=== PATIENT | male | born 1995 | race Caucasian/White ===

== ENCOUNTER 2018-02-23 15:34 | Inpatient (IN) | payer BC, OTHER ==
[~2018-02-23] VITALS: Ht 182.9 cm; Wt 117.9 kg
--- NOTE | 2018-02-23 18:20 | NUR ---
PRE ADMISSION NOTE Patient is alert awake oriented x4. Patient is admitted for ETOH/Benzo(XANAX), Heroin, Meth, Vicodin, withdrawal. VITAL SIGNS- B/P-132/89, RR-18, HR-88, Spo2-96%, Pain -0/10. Temp-98.1. Patient reported PMH of anxiety, depression, asthma,Hep-C, ADHD and history of withdrawal induced seizure. Patient is intoxicated at this time and able to answer questions but patient has poor eye contact and keep scratching himself all over his body. Explained patient with unit protocol. Will admit the patient on third floor.
[2018-02-23] MEDS ORDERED: MIRALAX 17 GM POWD.PACK PO PRN (18:30)
[2018-02-23] MEDS ORDERED: diphenhydrAMINE 50 MG CAPSULE PO PRN (18:30)
[2018-02-23] MEDS ORDERED: MAGNESIUM HYDROXIDE 30 ML LIQUID UDC PO PRN (18:30)
[2018-02-23] MEDS ORDERED: THIAMINE HCL 200 MG/2 ML VIAL IM ONE (18:30)
[2018-02-23] MEDS ORDERED: LORAZEPAM 1 MG TABLET PO PRN (18:30)
[2018-02-23] MEDS ORDERED: LORAZEPAM 2 MG/1 ML VIAL IM PRN (18:30)
[2018-02-23] MEDS ORDERED: MAG HYDROX/AL HYDROX/SIMETH 30 ML LIQUID UDC PO PRN (18:30)
[2018-02-23] MEDS ORDERED: LOPERAMIDE HCL 2 MG CAPSULE PO PRN ×2 (18:30)
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
[2018-02-23 20:00] VITALS: BP 134/93
[2018-02-23 20:06] LABS: ALANINE AMINOTRANSFERASE 85 U/L (16-63); ALKALINE PHOSPHATASE 90 U/L (50-136); AMYLASE 27 U/L (25-115); ASPARTATE AMINOTRANSFERASE 34 U/L (15-37); BILIRUBIN,TOTAL 0.7 mg/dL (0.2-1.0); CARBON DIOXIDE 28 mmol/L (21-32); CHLORIDE 99 mmol/L (98-107); GLUCOSE 101 mg/dL (74-106); MAGNESIUM 2.1 mg/dL (1.8-2.4); POTASSIUM 3.8 mmol/L (3.5-5.1); TOTAL PROTEIN, SERUM 8.5 g/dL (6.4-8.2); UREA NITROGEN, BLOOD 8 mg/dL (7-18)
[2018-02-23 20:17] LABS: THYROID STIMULATING HORMONE 0.551 mIU/mL (0.358-3.740)
[2018-02-23 20:31] LABS: ETHANOL < 3 MG/DL (0-0)
--- NOTE | 2018-02-23 20:31 | NUR ---
CLINICAL PHARMACY:VANCOMYCIN DOSING Request for Vancomycin dosing on 22 y/0 6' 260lbs for left upper extremity cellulitis BUN 8 Scr 1.0 start vancomycin 2gm ivpb q16h estimate trough 15.7. Will order trough level prior to 4th dose. Will continue to monitor
[2018-02-23] MEDS: ONDANSETRON 4 MG/2 ML VIAL IM PRN (20:38)
[2018-02-23] MEDS: GABAPENTIN 300 MG CAPSULE PO SCH (20:39)
[2018-02-23] MEDS: IBUPROFEN 600 MG TABLET PO PRN (20:39)
[2018-02-23] MEDS: METHOCARBAMOL 750 MG TABLET PO PRN (20:39)
[2018-02-23] MEDS: DICYCLOMINE HCL 20 MG TABLET PO PRN (20:39)
--- NOTE | 2018-02-23 20:39 | NUR ---
RASHI REDD, ZOFRAN INJ, ROBAXIN AND MOTRIN ADMINISTRATION Pt complains of nausea, reports having one episode of vomiting prior to arrival. Pt states, "I feel like I'm about to throw up." Pt presents with stomach cramps, body aches and pain in bilateral arms r/t cellulitis and abscesses. Safety measures in place. Call light within reach. Will continue to monitor.
[2018-02-23 20:44] LABS: BASOPHILS % (AUTO) 0.3 % (0.0-2.0); EOSINOPHILS # (AUTO) 0.1 K/uL (0.0-0.7); EOSINOPHILS % (AUTO) 0.5 % (0.0-7.0); HEMATOCRIT 41.6 % (36.7-47.1); HEMOGLOBIN 14.4 g/dL (12.5-16.3); LYMPHOCYTES # (AUTO) 1.3 K/uL (20.0-40.0); LYMPHOCYTES % (AUTO) 8.5 % (20.5-51.5); MEAN CORPUSCULAR HGB CONC 35 g/dL (32.5-36.3); MEAN CORPUSCULAR VOLUME 89.6 fL (73.0-96.2); MONOCYTES % (AUTO) 6.7 % (0.0-11.0); NEUTROPHILS # (AUTO) 12.5 K/uL (1.8-8.9); PLATELET COUNT (AUTO) 283 K/uL (152-348); RED BLOOD CELL COUNT(AUTO) 4.65 MIL/uL (4.06-5.63); WHITE BLOOD COUNT (AUTO) 14.8 K/uL (3.6-10.2)
[2018-02-23] MEDS ORDERED: LORAZEPAM 1 MG TABLET PO SCH (21:00)
[2018-02-23] MEDS: VANCOMYCIN IV 2,000 MG in IV DEXTROSE 5% 500 ML IV SCH (21:26)
--- NOTE | 2018-02-23 21:39 | NUR ---
RASHI REDD, BRENDON, ROBAXIN AND MOTRIN REASSESSMENT Pt reports persistent nausea, no episodes of vomiting. Reports stomach cramps improved. Body aches and pain in arms reduced to 6/10, states "It still christopher feels the same." Safety measures in place. Call light within reach. Will continue to monitor. Addendum: 02/24/18 at 0093 by REED LOVE RN [email or web address] REASSESSMENT AT [id number]
[2018-02-23 21:48] LABS: *AMPHETAMINE, URINE NEGATIVE (NEGATIVE); *BARBITURATE, URINE NEGATIVE (NEGATIVE); *CANNABINOID, URINE POSITIVE (NEGATIVE); *COCCAINE, URINE NEGATIVE (NEGATIVE); *OPIATE, URINE POSITIVE (NEGATIVE); *PHENCYCLIDINE SCREEN,URINE NEGATIVE (NEGATIVE)
[2018-02-23] MEDS: BUPRENORPHINE HCL 2 MG TAB.SUBL SL PRN (21:50)
--- NOTE | 2018-02-23 21:50 | NUR ---
PRN SUBUTEX 4 MG ADMINISTRATION COWS 15. Pt presents with body aches, nausea, increased HR, dilated pupils, anxiety. Pt appears uncomfortable. Safety measures in place. Call light within reach. Will continue to monitor.
--- NOTE | 2018-02-23 22:50 | NUR ---
PRN SUBUTEX REASSESSMENT COWS 9, pt has improvement in sweats, anxiety, restlessness. Safety measures in place. Call light within reach. Will continue to monitor.
[2018-02-24] VITALS: BP 110/53
[2018-02-24] MEDS ORDERED: ALBU2.5V13 IH ×2 (02:36→02:37)
[2018-02-24] MEDS ORDERED: QUET100T PO (02:37)
[2018-02-24 04:00] VITALS: BP 116/63
[2018-02-24] MEDS: BUPRENORPHINE HCL 2 MG TAB.SUBL SL PRN ×2 (04:28→17:52)
[2018-02-24] MEDS: LORAZEPAM 1 MG TABLET PO PRN ×4 (04:28→23:10)
[2018-02-24] MEDS: ONDANSETRON ODT 4 MG TAB.RAPDIS SL PRN ×2 (04:29→21:22)
[2018-02-24] MEDS: IBUPROFEN 600 MG TABLET PO PRN ×3 (04:29→20:13)
--- NOTE | 2018-02-24 04:30 | NUR ---
PRN SUBUTEX 4 MG, ATIVAN 2 MG, ZOFRAN ODT AND MOTRIN ADMINISTRATION COWS 13 and CIWA 14. Pt presents with anxiety, restlessness, difficulty staying asleep, sweats, flushed skin, body aches, nausea without vomiting, agitation, headache 01/12. Safety measures in place. Call light within reach. Will continue to monitor.
--- NOTE | 2018-02-24 05:30 | NUR ---
PRN ATIVAN, SUBUTEX, ZOFRAN AND MOTRIN REASSESSMENT Pt laying in bed with eyes closed, medications noted effective. Respirations even and unlabored. Safety measures in place. Call light within reach. Will continue to monitor.
--- NOTE | 2018-02-24 07:12 | NUR ---
END OF SHIFT Pt is a 22 y/o male admitted on 02/23/18 for benzo, ETOH, opiate, meth and cocaine withdrawal. Pt is on a 4 day Ativan and Subutex taper, tolerating well. Pt presented with anxiety, restlessness, irritability, nausea, body aches, lethargy, flushed skin, flat affect, agitation, difficulty concentrating, poor eye contact, slumped posture, disheveled appearance, stomach cramps. Pt also complained of pain and itchiness in right AC and presents with redness and swelling at abscess site. Pt also had redness, swelling, pain and itchiness on left upper extremity. IV Vanco started on left wrist 22 gauge at 250 ml/hour. Scheduled medications and PRN Bentyl, Zofran inj, Zofran odt, Robaxin, Ativan 2 mg, Subutex 4 mg x 2, Motrin x 2 administered, effective in S/S of withdrawal as verbalized by pt. Pt slept 5 hours. Intake 855 ml, void x 1, stool x 0. Safety measures in place. Call light within reach. Pts needs have been met. Endorsed to day shift nurse.
--- NOTE | 2018-02-24 07:30 | NUR ---
START OF SHIFT : PATIENT IS A 22 YR OLD MALE ADMITTED TO [facility] ON 02/23/18 FOR A MEDICALLY SUPERVISED WITHDRAWAL FROM ALCOHOL, BENZODIAZEPINES, METH, COCAINE AND MARIJUANA. PATIENT IS ASLEEP IN BED AT THIS TIME, BREATHING EVEN AND UNLABORED SIDE RAILS UP X 2. PATIENT HAS BEEN STARTED ON VANCOMYCIN IV Q16H FOR TREATMENT OF BILATERAL ARM ABSCESSES. IV SITE LEFT WRIST. HE IS ON A 4 DAY ATIVAN / SUBUTEX TAPER AND IS TOLERATING WELL. PRN MEDS GIVEN ON PM SHIFT : ATIVAN 2MG PO X2, ZOFRAN 4MG IM, ZOFRAN 4MG SL, ROBAXIN, SUBUTEX 4MG SL X2 AND MOTRIN 600MG PO X2 AND BENTYL. HE SLEPT FOR 7+ HOURS AND LAST COWS 13 CIWA 14 @ 0100. CONTINUE TO FOLLOW MD PLAN OF CARE.
[2018-02-24 08:00] VITALS: BP 112/64
[2018-02-24] MEDS: LORAZEPAM 1 MG TABLET PO SCH ×3 (08:20→20:13)
[2018-02-24] MEDS: THIAMINE HCL 100 MG TABLET PO SCH (08:21)
[2018-02-24] MEDS: GABAPENTIN 300 MG CAPSULE PO SCH ×2 (08:21→20:13)
[2018-02-24] MEDS: BUPRENORPHINE HCL 2 MG TAB.SUBL SL SCH ×3 (08:21→20:13)
[2018-02-24] MEDS: MULTIVITAMINS,THERAPEUTIC TABLET PO SCH (08:21)
[2018-02-24] MEDS: FOLIC ACID 1 MG TABLET PO SCH (08:21)
[2018-02-24] MEDS ORDERED: TUBERCULIN,PURIF.PROT.DERIV. 5 TU/0.1 ML TEST ID ONE (09:00)
--- NOTE | 2018-02-24 12:41 | NUR ---
CLINICAL PHARMACY:VANCOMYCIN DOSING Subjective: Continue Vancomycin dosing on 22 y/0 6' 260lbs for left upper extremity cellulitis Objecteive: BUN 8(02/23) Scr 1.0(02/23) WBC 14.8(02/23) Temp 98.3 Assessment/plan; Continue vancomycin 2gm ivpb q16h, estimate trough 15.7, second dose due today at 1300. Will order trough level prior to 4th dose(not ordered yet). Will continue to monitor
[2018-02-24] MEDS: VANCOMYCIN IV 2,000 MG in IV DEXTROSE 5% 500 ML IV SCH (12:50)
--- NOTE | 2018-02-24 13:14 | NUR ---
PRN ATIVAN/ROBAXIN/MOTRIN ATIVAN 2MG PO ROBAXIN 750MG PO MOTRIN 600MG PO GIVEN FOR S/S OF WITHDRAWAL, AGITATION, CHILLS, SWEATS AND IRRITABILITY
[2018-02-24] MEDS: METHOCARBAMOL 750 MG TABLET PO PRN ×2 (13:15→21:22)
--- NOTE | 2018-02-24 14:14 | NUR ---
PRN REASSESS PATIENT IS ASLEEP IN BED, BREATHING EVEN AND UNLABORED, MEDICATIONS EFFECTIVE
--- NOTE | 2018-02-24 15:31 | NUR ---
Therapist prompted client to attend daily group sessions. Client was had a hard time responding to therapist but stated that he was too tired to attend any groups at this time.
[2018-02-24 16:00] VITALS: BP 108/58
--- NOTE | 2018-02-24 18:00 | NUR ---
ATIVAN/SUBUTEX PRN ATIVAN 2MG PO GIVEN FOR CIWA 14 SUBUTEX 4MG SL GIVEN FOR COWS 12 AND INCREASED WITHDRAWAL SYMPTOMS, SWEATING, AGITATION, BODY ACHES
--- NOTE | 2018-02-24 19:00 | NUR ---
PRN REASSESS ATIVAN EFFECTIVE, CIWA 11 SUBUTEX EFFECTIVE COWS 11 PT STATES HE FEELS LESS ANXIOUS AND AGITATED
--- NOTE | 2018-02-24 19:12 | NUR ---
END OF SHIFT PATIENT IS A 22 YR OLD MALE ADMITTED TO [facility] ON 02/23/18 FOR A MEDICALLY SUPERVISED WITHDRAWAL FROM ALCOHOL, BENZOS, METH ,COCAINE, HEROIN AND MARIJUANA. HE IS ON A 4 DAY ATIVAN/SUBUTEX TAPER TOLERATED WELL. PATIENT HAS ABSCESSES ON BOTH ARMS AND IS BEING TREATED WITH IV VANCOMYCIN Q16H, IV SITE IS ON LEFT WRIST. PRN MEDS GIVEN THIS SHIFT : MOTRIN, ROBAXIN, SUBUTEX 4MG AND ATIVAN 2MG PO, HE HAD A FLUID INTAKE OF 1000ML, 2 VOIDS AND 0 BM, LAST COWS 11 AND CIWA 11 @ 1900. CONTINUE TO FOLLOW MD PLAN OF CARE. ENDORSED TO OPTICIAN APPRENTICE.
--- NOTE | 2018-02-24 19:30 | NUR ---
Start of Shift Note Received a 22 y/o male px, admitted for medically supervised withdrawals from Benzo, ETOH, opiates. Px is placed on 5 day Ativan taper started 02/23/2018 and 4 day Subutex taper started today 02/24/2018. Px is tolerating them. Px is on 1 to 1 due to unsteady gait. Px may go to patio using W/C. Last reported COWS 11 and CIWA 11 by AM shift nurse. During the rounds at 1930, px is awake with eyes closed on bed in left side lying position. Px appears disheveled, anxious, with flat affect and poor eye contact. Unfinished snacks and drinks all over the room and bed. Px stated "my anxiety is 8/10 and I have body aches 9/10. Why do I have somebody here watching over me?" Explained that 1 to 1 is for his safety during ambulation and he may use W/C if he wants to go to patio. Bed on lowest position, side rails up 2x and call light within reach.
[2018-02-24 20:00] VITALS: BP 123/75
[2018-02-24] MEDS: ACETAMINOPHEN 325 MG TABLET PO PRN (20:13)
--- NOTE | 2018-02-24 20:13 | NUR ---
PRN medications At 2012, Px received Motrin 600 mg/tab, 1 tab PO and Tylenol 325 mg/tab, 2 tabs PO as PRN med for body pains of 9/10. At 2121, Px received Zofran 4 mg/tab, 1 tab SL PRN med for 1x emesis and nausea and Robaxin 750 mg/tab, 1 tab PO as PRN med for body aches of 8/10. At 2309, px received Ativan 1 mg/tab, 2 tabs PO as PRN for CIWA of 13 and Seroquel 100 mg PO as PRN med for insomnia. We'll continue to monitor.
--- NOTE | 2018-02-24 21:15 | NUR ---
Reassessment of Body Aches Px stated that his body aches is still high at 8/10 and is asking for Robaxin. We'll continue to monitor.
--- NOTE | 2018-02-24 21:52 | NUR ---
Reassessment of N/V Px stated that his nausea improved and no more episode of vomiting. We'll continue to monitor.
--- NOTE | 2018-02-24 22:30 | NUR ---
Reassessment of body aches Px stated "I am still in pain. It's 03/14." We'll continue to monitor.
[2018-02-24] MEDS: QUETIAPINE FUMARATE 100 MG TABLET PO PRN (23:10)
[2018-02-25] VITALS: BP 119/70
[2018-02-25 04:00] VITALS: BP 115/69
--- NOTE | 2018-02-25 04:00 | NUR ---
COWS and CIWA deferred COWS and CIWA deferred at 0000 and 0400 due to the px is asleep, to assess if the px is awake per doctor's order. We'll continue to monitor.
--- NOTE | 2018-02-25 05:15 | NUR ---
IV Vancomycin Vancomycin 2 G in D5 500 ml hooked as a 3rd dose for left and right arm cellulitis. Flushed with 10 cc NS. IV Inserted on a left wrist peripheral IV line running at 250 ml per hour. We'll continue to monitor.
[2018-02-25] MEDS: VANCOMYCIN IV 2,000 MG in IV DEXTROSE 5% 500 ML IV SCH ×2 (05:20→21:29)
--- NOTE | 2018-02-25 07:15 | NUR ---
End of Shift Note During the shift at 2012, px received Motrin 600 mg PO and Tylenol 650 mg PO for pain of 9/10. At 2121, px received Zofran 4 mg SL for N/V, It was effective. At 2121, Robaxin 750 mg given for pain of 8/10. Px slept before reassessment of the pain. At 2309, px received Ativan 2 mg PO for CIWA 13 and Seroquel 100 mg PO for insomnia. Seroquel was effective. Px slept for 8 hours. Px 's oral intake is 800 ml, voided 2x, without BM. At 0630, px is asleep on bed in fowlers position. Last COWS 12 and CIWA 13. Bed on lowest position, side rails up 2x and call light within reach. Px endorsed to AM shift nurse.
--- NOTE | 2018-02-25 07:35 | NUR ---
START OF SHIFT Rcvd endorse from ongoing nurse, client is in bed, client is a/o x name, place, and situation, he presents with depressed mood, flat affect, moist skin, fine tremors, and difficulty concentrating, peripheral IV on L wrist 22G, Vancomycin running at prescribed rate. Client is on antibiotic therapy Vancomycin for bilateral arm cellulitis with multiple lesions from IV drug use. Client appears disheveled, strong body odor, dirt under fingernails. Client reports inability to sleep, restlessness, generalized body aches, anxiety, cold/chills, abdominal cramps, and decrease appetite. Client is on 1:1 sitter for unsteady gait. Encourage client to drink PO fluids as tolerated to facilitate detox. Encourage client to attend group therapy to learn skills to maintain sober. Last CI 11 @ 2300. PRN medication administered overnight and noted per protocol. Client slept 8 hrs. Seizure precautions in place. Call light within reach.
[2018-02-25 08:00] VITALS: BP 110/65
[2018-02-25 08:06] LABS: HEPATITIS B SURFACE AG Negative (Negative)
[2018-02-25] MEDS: FOLIC ACID 1 MG TABLET PO SCH (09:00)
[2018-02-25] MEDS: LORAZEPAM 1 MG TABLET PO SCH ×2 (09:00→14:10)
[2018-02-25] MEDS: MULTIVITAMINS,THERAPEUTIC TABLET PO SCH (09:00)
[2018-02-25] MEDS: THIAMINE HCL 100 MG TABLET PO SCH (09:00)
[2018-02-25] MEDS ORDERED: BUPRENORPHINE HCL 2 MG TAB.SUBL SL SCH (09:00)
[2018-02-25] MEDS: GABAPENTIN 300 MG CAPSULE PO SCH ×3 (09:00→21:29)
--- NOTE | 2018-02-25 10:14 | NUR ---
MD NOTIFICATION BLOOD CULTURE GRAM POSITIVE COCCI IN CLUSTERS SEEN ON GRAM STAIN IDENTIFICATION AND SENSITIVITIES TO FOLLOW
[2018-02-25 12:37] VITALS: BP 139/84
[2018-02-25] MEDS: BUPRENORPHINE HCL 2 MG TAB.SUBL SL SCH ×2 (14:10→21:29)
--- NOTE | 2018-02-25 14:16 | NUR ---
CLINICAL PHARMACY:VANCOMYCIN DOSING Subjective: Continue Vancomycin dosing on 22 y/0 6' 260lbs for left upper extremity cellulitis Objecteive: BUN 8(02/23) Scr 1.0(02/23) WBC 14.8(02/23) Temp 98.6 Assessment/plan; Continue vancomycin 2gm ivpb q16h, estimate trough 15.7, third dose today at 0500. Will order trough level prior to 4th dose(due tonight at 2030). RN endorsed to hold dose if trough >20. Will check level in am and adjust as needed. Will continue to monitor
[2018-02-25] MEDS: METHOCARBAMOL 750 MG TABLET PO PRN (16:21)
[2018-02-25] MEDS: IBUPROFEN 600 MG TABLET PO PRN (16:21)
--- NOTE | 2018-02-25 16:21 | NUR ---
Motrin/Robaxin/Clonidine 0.1mg PO given: Patient verbalizes "My back, knees and leg hurt. He describes the pain as "9/10." He is noted to be laying down. Rubbing his back and arms. Noted with facial grimacing, sweating and anxiety. Blood pressure 139/84. Medicated patient with Motrin, Robaxin and Clonidine as ordered. Will monitor for effectiveness.
[2018-02-25] MEDS: CLONIDINE HCL 0.1 MG TABLET PO PRN (16:27)
[2018-02-25 16:56] VITALS: BP 139/84
--- NOTE | 2018-02-25 17:21 | NUR ---
Reassess Motrin 600mg, Robaxin 750mg, Clonidine 0.1mg, client vernalizes some relief from pain /, client declines Tylenol at this time. Client continues to be anxious/agitated. Call light within reach. Client agrees to take Vistaril 25mg PO for anxiety and Bentyl 20mg for abdominal spasms.
[2018-02-25] MEDS: HYDROXYZINE PAMOATE 25 MG CAPSULE PO PRN (17:26)
[2018-02-25] MEDS: DICYCLOMINE HCL 20 MG TABLET PO PRN (17:26)
--- NOTE | 2018-02-25 17:26 | NUR ---
PRN Vistaril 25mg PO for anxiety and Bentyl 20mg for abdominal spasms, Will continue to monitor. Client stated, "Why can't you just give me Suboxone and then let me go to smoke, instead of treating me like a fucking monkey and experimenting on me with all these medications." Educate client on Vistaril and Bentyl, highlighting the benefits, client requires additional education. Call light within reach. CN made aware.
--- NOTE | 2018-02-25 18:26 | NUR ---
Reassess PRN Vistaril 25mg, Bentyl 20mg, client is in bed, sounds asleep, RR 16, even, non-labored, 1:1 sitter at bedside. Call light within reach.
--- NOTE | 2018-02-25 19:03 | NUR ---
END OF SHIFT Endorse client to incoming nurse, client is in room, a/o x name, place, and situation, he continues to present depressed mood, flat affect, moist skin, fine tremors, difficulty concentrating, anxiety, cold/chills, abdominal cramps, and decrease appetite. Hep lock on L wrist 22G patent, dressing intact. Vancomycin trough schedule for 2030, before fourth dose of vancomycin, hold if trough >20, will be adjusted in am as needed. Client continues on a 1:1 sitter for unsteady gait. Adequate PO fluid intake 1329mL, void x 2. Client consumes 50-75% of meals. Client is not compliant with group therapy. Last CIWA 14/COWS 13 @ 1600. PRN medication administered and noted per protocol. Uiversal precautions in place. Call light within reach.
[2018-02-25 20:00] VITALS: BP 136/86
--- NOTE | 2018-02-25 20:00 | NUR ---
Start of Shift Patient awake on bed, watching TV, AAOx4 and noted to be anxious, with facial grimacing noted. Patient verbalized intermittent generalized muscle weakness=3/10. Refused pain meds at this time. With IV access on the left wrist #22, patent and intact. Saline flush done, no resistance noted. Patient appears disheveled, with strong body odor, dark under-eye circles, dry lips and has a flushed face. Patient avoids eye contact and noted to be staring on the ceiling when spoken to. Educated patient regarding importance of hygiene. With scattered clothes and pieces of food wrapper on the floor. Pt continues to be on 1:1 for unsteady gait. Discussed with patient plan of care, medications and treatment regimen. Fall, universal, seizure and safety prec in place. Call light within reach. Latest COWS=12, CIWA=13. Will continue to monitor.
[2018-02-25] MEDS ORDERED: LORAZEPAM 1 MG TABLET PO SCH (21:00)
[2018-02-25] MEDS: CLONIDINE HCL 0.1 MG TABLET PO SCH (21:29)
[2018-02-25] MEDS: BACLOFEN 10 MG TABLET PO SCH (21:29)
[2018-02-26] VITALS: BP 127/82
[2018-02-26 04:00] VITALS: BP 133/84
--- NOTE | 2018-02-26 07:10 | NUR ---
End of Shift Patient asleep on bed but arousable, AAOx4 and continues to be anxious, and noted to be avoiding conversation. With IV access on the left wrist #22, patent and intact. Saline flush done, no resistance noted. Patient continually appears disheveled, with strong body odor, dark under-eye circles, dry lips and has a flushed face. With scattered clothes and pieces of food wrapper on the floor still despite the nurse and the NARCOTICS AGENT having cleaned the room earlier on the shift. Pt continues to be on 1:1 for unsteady gait. Fall, universal, seizure and safety prec in place. Call light within reach. Latest COWS=10, CIWA=11, slept for 9 hours. Endorsed to AM shift nurse for continuity of care.
--- NOTE | 2018-02-26 07:30 | NUR ---
START OF SHIFT Rcvd endorse from ongoing nurse, client is sitting in bed, a/o x name, place, and situation, he presents with anxious mood, restless, flat affect, clammy skin goosebump on upper extremities, tremors, and difficulty concentrating, Hep lock on L wrist 22G, patent, dressing intact, on antibiotic therapy Vancomycin for bilateral arm cellulitis. Client appears disheveled, strong body odor, chapped lips, and flushed face. Scattered bottle of water, apple juice, and open bags of candies noted on bedside table and floor, primary nurse cleaned area and encourage client to maintain his environment clean as to avoid a fall. ,Client reports in a pressured voice generalized body aches 4/10, anxiety , sweats, abdominal cramps, and loss of appetite due to nausea. Client is on 1:1 sitter for unsteady gait. Encourage client to drink PO fluids as tolerated to facilitate detox. Encourage client to attend group therapy to learn skills to maintain sober. Last CIWA 10 @ 0400. Client had an uneventful night, slept 9 hrs. Seizure precautions in place. Call light within reach.
[2018-02-26 08:55] VITALS: BP 143/93
[2018-02-26] MEDS: MULTIVITAMINS,THERAPEUTIC TABLET PO SCH (09:08)
[2018-02-26] MEDS: BACLOFEN 10 MG TABLET PO SCH ×2 (09:08→20:19)
[2018-02-26] MEDS: CLONIDINE HCL 0.1 MG TABLET PO SCH ×2 (09:08→20:19)
[2018-02-26] MEDS: GABAPENTIN 300 MG CAPSULE PO SCH ×3 (09:08→20:18)
[2018-02-26] MEDS: LORAZEPAM 1 MG TABLET PO SCH ×2 (09:08→20:19)
[2018-02-26] MEDS: BUPRENORPHINE HCL 2 MG TAB.SUBL SL SCH ×3 (09:08→20:19)
[2018-02-26] MEDS: FOLIC ACID 1 MG TABLET PO SCH (09:09)
[2018-02-26] MEDS: THIAMINE HCL 100 MG TABLET PO SCH (09:09)
[2018-02-26 09:14] LABS: BASOPHILS % (AUTO) 0.4 % (0.0-2.0); EOSINOPHILS # (AUTO) 0.2 K/uL (0.0-0.7); MEAN CORPUSCULAR HGB CONC 35 g/dL (32.5-36.3); MEAN CORPUSCULAR VOLUME 88.8 fL (73.0-96.2); MONOCYTES # (AUTO) 0.7 K/uL (2.0-10.0)
[2018-02-26 09:20] LABS: EOSINOPHILS % (AUTO) 2.2 % (0.0-7.0); HEMATOCRIT 44.3 % (36.7-47.1); HEMOGLOBIN 15.4 g/dL (12.5-16.3); LYMPHOCYTES % (AUTO) 22.7 % (20.5-51.5); MONOCYTES % (AUTO) 7.4 % (0.0-11.0); NEUTROPHILS % (AUTO) 67.3 % (38.5-71.5); PLATELET COUNT (AUTO) 282 K/uL (152-348); RED BLOOD CELL COUNT(AUTO) 4.98 MIL/uL (4.06-5.63)
[2018-02-26 09:23] LABS: BILIRUBIN,DIRECT 0.1 mg/dL (0.0-0.2); BILIRUBIN,TOTAL 0.4 mg/dL (0.2-1.0); CREATININE 0.9 mg/dL (0.6-1.3); MAGNESIUM 2.1 mg/dL (1.8-2.4); POTASSIUM 4.1 mmol/L (3.5-5.1); TOTAL PROTEIN, SERUM 7.9 g/dL (6.4-8.2)
--- NOTE | 2018-02-26 09:30 | NUR ---
Client is on contact isolation d/t positive for MRSA on the blood. Cart is outside room and sign posted at door. Educated client on MRSA infection, reinforcement needed.
[2018-02-26 09:35] LABS: WHITE BLOOD COUNT (AUTO) 8.9 K/uL (3.6-10.2)
[2018-02-26] MEDS ORDERED: NICOTINE POLACRILEX 4 MG GUM-PK OF TEN BC PRN (10:00)
[2018-02-26] MEDS ORDERED: NICOTINE 14 MG/24HR PATCH TD PRN (10:00)
[2018-02-26] MEDS: HYDROXYZINE PAMOATE 25 MG CAPSULE PO PRN ×2 (11:25→22:34)
[2018-02-26] MEDS: CLONIDINE HCL 0.1 MG TABLET PO PRN (11:25)
[2018-02-26] MEDS: KETOROLAC TROMETHAMINE 30 MG INJ IM PRN ×2 (11:25→20:18)
--- NOTE | 2018-02-26 11:25 | NUR ---
PRN Toradol 30mg I, Vistaril 25mg PO, Clonidine 0.1mg PO administered for generalized body aches 10/10, anxiety, agitation, and cold/chills. Call light within reach.
[2018-02-26] MEDS: IV D5 1/2 NS 1000 ML 1,000 ML IV PRN (11:43)
--- NOTE | 2018-02-26 11:55 | NUR ---
Reassess PRN Toradol 30mg IM, client reports slight relief from generalized body aches 5/10. Client declines Tylenol for pain at this time, stating, "i rather, you just give me some Suboxone." Additional education required on Subutex taper.
[2018-02-26 12:18] VITALS: BP 148/91
--- NOTE | 2018-02-26 12:50 | NUR ---
Client stated, "If I don't go to smoke, I am not going to be compliant with this antibiotic ." Educated client on contact isolation and the risk of MRSA (blood). Reinforcement needed.
[2018-02-26] MEDS ORDERED: LORAZEPAM 1 MG TABLET PO ONE (13:15)
--- NOTE | 2018-02-26 13:26 | NUR ---
One time Ativan 2mg for anxiety, agitation. Call light within reach.
[2018-02-26] MEDS: VANCOMYCIN IV 2,000 MG in IV NORMAL SALINE 500 ML IV SCH ×2 (14:20→22:25)
[2018-02-26] MEDS: DICYCLOMINE HCL 20 MG TABLET PO SCH ×2 (14:21→20:19)
--- NOTE | 2018-02-26 14:26 | NUR ---
Reassess One time Ativan 2mg, client is in bed, sound asleep, RR 16, even, non-labored. Call light within reach.
--- NOTE | 2018-02-26 15:10 | NUR ---
CLINICAL PHARMACY:VANCOMYCIN DOSING Subjective: Continue Vancomycin dosing on 22 y/0 6' 260lbs for left upper extremity cellulitis Objecteive: BUN 7 Scr 0.9 WBC 8.9 Temp 98.6 Trough: 3.8 02/25 at 2030 Repeat Trough: 4.5 today 02/26 at 1230 Assessment/plan; Based on trough and repeat to confirm low level, will change regimen to 2gm q8hr for estimated trough of 16.1, first dose today at 1400. Trough ordered before 4th scheduled dose, due tomorrow at 1330. Will check trough and adjust as needed. Will follow
[2018-02-26 16:55] VITALS: BP 129/86
--- NOTE | 2018-02-26 17:14 | NUR ---
Therapist prompted client to attend the next group meeting. Client stated that he would attend.
--- NOTE | 2018-02-26 19:28 | NUR ---
END OF SHIFT Endorse client to incoming nurse, client in in room, a/o x 4, he continues to present with depressed mood, flat affect, clammy skin, dilated pupils, runny nose, restlessness, anxiety, agitation, and difficulty concentrating. Adequate PO fluid intake 2501mL, void x 3. Client continues on 1:1 for unsteady gait. Peripheral line on R F/A 22G running D5%,1/2NS 125mL/hr for hydration. Client consumes 50% of meals. Client is non-compliant of group therapy. Last CIWA 10 @ 1600. PRN administered amd mnoted per protocol. Seizure precautions in place. Contact isolation d/t + MRSA (blood). Call light within reach.
--- NOTE | 2018-02-26 19:45 | NUR ---
Start of Shift Note Received a 22 y/o male px, admitted for medically supervised withdrawals from Benzo, ETOH, opiates. Px is placed on 5 day Ativan and 4 day Subutex taper, last dose will be tomorrow, 02/27/2018. Px is tolerating them. Px is on 1 to 1 due to unsteady gait. Px is on IVF D5 half saline 1 L running at 125 ml/ hr inserted on a peripheral IV line on right forearm. Last reported COWS 11 and CIWA 10 by AM shift nurse. Px is isolation, on patio and room restriction. During the rounds at 1945, px is awake with eyes closed on bed in fowlers position. Px appears disheveled, anxious, with flat affect and poor eye contact. Unfinished snacks and drinks noted on bed side table and top of cabinet. Soiled clothes and beddings noted on the floor. Px stated "my anxiety is 8/10 and I have body aches 8/10. Can I go outside just to walk around the corridor? I feel shit right here! I feel Im in a longterm, and why do I still have somebody inside my room?" Isolation order and 1 to 1 order were explained to the px calmly. Bed on lowest position, side rails up 2x and call light within reach. We'll continue to monitor.
[2018-02-26 20:00] VITALS: BP 129/81
--- NOTE | 2018-02-26 20:18 | NUR ---
PRN medications At 2017, Px received Toradol 30 mg IM on left deltoids for generalized body aches of 8/10. At 2233, px received Vistaril 25 mg/cap, 1 cap PO for anxiety and Seroquel 100 mg/tab,1 tab PO for insomnia as PRN medications. We'll continue to monitor.
--- NOTE | 2018-02-26 20:50 | NUR ---
Reassessment of pain Px stated "My pain is still there. 04/13." We'll continue to monitor.
[2018-02-26] MEDS: MUPIROCIN 2% OINT 22 GM TUBE NS SCH (21:00)
[2018-02-26] MEDS: QUETIAPINE FUMARATE 100 MG TABLET PO PRN (22:34)
--- NOTE | 2018-02-26 23:35 | NUR ---
Reassessment of anxiety Reassessment is deferred due to the px is asleep. We'll continue to monitor.
[2018-02-27] VITALS: BP 114/77
[2018-02-27] MEDS: CLONIDINE HCL 0.1 MG TABLET PO PRN ×2 (01:59→17:46)
[2018-02-27] MEDS: METHOCARBAMOL 750 MG TABLET PO PRN ×3 (01:59→20:45)
--- NOTE | 2018-02-27 01:59 | NUR ---
PRN meds Px received Robaxin 750 mg/tab, 1 tab PO as PRN for generalized body pains of 7/10. Clonidine 0.1 mg/tab,1 tab PO was given for anxiety. We'll continue to monitor.
[2018-02-27] MEDS: IV D5 1/2 NS 1000 ML 1,000 ML IV PRN (03:00)
--- NOTE | 2018-02-27 03:00 | NUR ---
Reassessment of pain Reassessment of pain was deferred due to the px is asleep.
--- NOTE | 2018-02-27 03:00 | NUR ---
IVF D5 half saline IVF D5 half NS 1 L hooked as follow up as primary IV running at 125 ml/ hour inserted in a peripheral IV line on right forearm.
[2018-02-27 04:00] VITALS: BP 120/64
[2018-02-27] MEDS: VANCOMYCIN IV 2,000 MG in IV NORMAL SALINE 500 ML IV SCH ×3 (06:04→21:58)
--- NOTE | 2018-02-27 07:10 | NUR ---
End of Shift Note During the shift at 2018, px received Toradol 30 mg IM injection on left deltoids for generalized body aches of 8/10. It was a bit effective. At 2234, px received Seroquel 100 mg PO for insomnia and Vistaril 25 mg PO for anxiety as PRN medications. At 0159, px received Robaxin 750 mg PO for pain 7/10 and Clonidine 0.1 mg PO for anxiety. At 0300, D5 half saline 1 L hooked at follow up as primary IVF running at 125 ml/hour inserted on a peripheral IV line on right forearm. At 0600, Vancomycin 2 G in NS 500 ml hooked at piggyback antibiotic running at 250 ml/hour. Pxs oral intake is 1 L, voided 2x, with No BM. Px slept for 5.5 hours. Last COWS 10, CIWA 11. Bed on lowest position, side rails up 2x and call light within reach. Bed in lowest position, side rails up 2x, and call light within reach. We'll continue to monitor. Px endorsed to AM shift
--- NOTE | 2018-02-27 07:47 | NUR ---
Start of shift Patient 22 y/o male admitted for medically supervised withdrawal of benzos, ETOH, heroin, meth, opiates, and cocaine. Patient asleep, arousable to voice and light touch. Pt on 1:1 for safety. Pt in isolation for MRSA in blood. Pt has Hepatitis C. Pt on 5 day Ativan taper and Subutex taper (day 5) tolerating well. Pt has IV D5 NS at 125 cc/hour at right forearm. Pt has cellulitis LUE. Pt also received Vancomycin 2 grams Q8 hours. See MD orders. Last COWS 10, CIWA 11. Pt slept 5 hours last night. Patient is compliant with medication regimen. NKA, FULL CODE. Fall and seizure precautions observed. Bed in lowest/locked position, side rails up X2, call light within reach. Will continue to monitor for withdrawal symptoms.
[2018-02-27 08:33] VITALS: BP 95/51
[2018-02-27] MEDS: BACLOFEN 10 MG TABLET PO SCH ×3 (08:36→20:45)
[2018-02-27] MEDS: DICYCLOMINE HCL 20 MG TABLET PO SCH ×3 (08:36→20:45)
[2018-02-27] MEDS: GABAPENTIN 300 MG CAPSULE PO SCH ×2 (08:36→15:18)
[2018-02-27] MEDS: FOLIC ACID 1 MG TABLET PO SCH (08:36)
[2018-02-27] MEDS: THIAMINE HCL 100 MG TABLET PO SCH (08:36)
[2018-02-27] MEDS: MULTIVITAMINS,THERAPEUTIC TABLET PO SCH (08:36)
[2018-02-27] MEDS: CLONIDINE HCL 0.1 MG TABLET PO SCH ×2 (08:37→20:46)
[2018-02-27] MEDS: MUPIROCIN 2% OINT 22 GM TUBE NS SCH ×2 (08:54→21:00)
[2018-02-27] MEDS ORDERED: BUPRENORPHINE HCL 2 MG TAB.SUBL SL SCH (09:00)
[2018-02-27] MEDS ORDERED: LORAZEPAM 1 MG TABLET PO SCH ×2 (09:00→21:00)
[2018-02-27] MEDS: KETOROLAC TROMETHAMINE 30 MG INJ IM PRN (11:28)
[2018-02-27] MEDS: ONDANSETRON ODT 4 MG TAB.RAPDIS SL PRN ×2 (11:29→20:46)
--- NOTE | 2018-02-27 11:36 | NUR ---
PRN MEDICATIONS TORODOL 30 MG IM RIGHT DELTOID FOR BODY PAIN #8/10 ZOFRAN 4 MG SL FOR NAUSEA ROBAXIN 750 MG PO FOR GENERALIZED BODY ACHES
[2018-02-27 12:00] VITALS: BP 131/71
[2018-02-27] MEDS: LORAZEPAM 1 MG TABLET PO SCH ×2 (12:00→16:50)
--- NOTE | 2018-02-27 12:35 | NUR ---
REASSESS MEDICATIONS TORADOL- PT REPORTS BODY PAIN/BACK PAIN BETTER, NOW #4-5/10 ZOFRAN- PT REPORTS NAUSEA IMPROVED AND HE IS ABLE TO EAT. NO EMESIS ROBAXIN- PT REPROTS BODAY ACHES IMPROVED. ALL MEDICATIONS EFFECTIVE.
--- NOTE | 2018-02-27 14:03 | NUR ---
CLINICAL PHARMACY:VANCOMYCIN DOSING Subjective: Continue Vancomycin dosing on 22 y/0 6' 260lbs for left upper extremity cellulitis + positive BCx for MRSA sensitive to vanco Objecteive: BUN 7 (02/26) Scr 0.9 (02/26) WBC 8.9 (02/26) Temp 98.1 Trough: 16.7 today at 1330 Assessment/plan; Based on trough and repeat to confirm low level, continue same regimen of vanco 2gm q8hr for now. Will consider rechecking level if renal function were to change or if pt on prolonged course. Will follow
--- NOTE | 2018-02-27 14:09 | NUR ---
Vancomycin trough 16.7, ok to administer vancomycin 2000 mg
[2018-02-27] MEDS: BUPRENORPHINE HCL 2 MG TAB.SUBL SL SCH ×2 (15:19→20:45)
[2018-02-27 16:00] VITALS: BP 129/67
[2018-02-27] MEDS: HYDROXYZINE PAMOATE 25 MG CAPSULE PO PRN (17:45)
--- NOTE | 2018-02-27 17:51 | NUR ---
PRN CATAPRES 0.1 MG PO FOR ANXIETY. VISTARIL 25 MG PO FOR ANXIETY PT C/O SEVERE ANXIETY, WANTS TO GO OUTSIDE TO SMOKE AND IN ROOM ON ISOLATION. PT UPSET HE HAS BEEN IN ROOM THE LAST FEW DAYS.
--- NOTE | 2018-02-27 18:31 | NUR ---
End of shift Patient 22 y/o male admitted for medically supervised withdrawal of benzos, ETOH, heroin, meth, opiates, and cocaine. Pt was on 5 day Ativan taper and Subutex taper (day 5). extended Ativan and Subutex taper one more day. Anticipated end of taper Thursday and discharge Thursday. Patient A&O X4. Presents with anxiety, irritable, labile, depressed mood and flat affect. W/D symptoms include sweats, nausea, body aches and back pain. PRN given today Torodol, Zofran, Vistaril, Clonidine, and Robaxin. Pt on 1:1 for safety. Pt in isolation for MRSA in blood. Pt has Hepatitis C. Pt has heplock at right forearm, patent. Used for IV antibiotic Vancomycin. Pt has cellulitis LUE. Last COWS 10, CIWA 11. Patient is compliant with medication regimen. NKA, FULL CODE. Adequate PO fluids 2100 ml, IV fluids 1000 ml, voids x 2, no BM. Fall and seizure precautions observed. Bed in lowest/locked position, side rails up X2, call light within reach. Will continue to monitor for withdrawal symptoms. Endorsed to PM shift.
--- NOTE | 2018-02-27 18:50 | NUR ---
REASSESS- CLONIDINE AND VISTARIL- PT REPORTS ANXIETY IMPROVED. HE STILL FEELS CLAUSTROPHOBIC AND WANTS TO GO OUTSIDE.
--- NOTE | 2018-02-27 19:30 | NUR ---
START OF SHIFT Pt is a 22 y/o male admitted on 02/23/18 for benzo, ETOH, opiate, meth and cocaine withdrawal. Pt on a Ativan and Subutex taper that got extended today. Last COWS 10 and CIWA 11 and PRN Toradol, Robaxin, Zofran odt, Clonidine and Vistaril administered during day shift. Upon assessment pt presents with anxiety, restlessness, agitation, lethargy, fatigue, paranoia, worry, depression, flat affect, unkempt room, unshaven, difficulty falling and staying asleep, dysphoria, anhedonia. Pt on IV Vancomycin. IV site in right forearm, IV site patent and intact. No redness, swelling or pain at IV site. Pt has cellulitis in lUE and MRSA. Medications due. Safety measures in place. Call light within reach. Will continue to monitor. Addendum: 02/27/18 at 2311 by REED LOVE RN 1:1 sitter for safety.
[2018-02-27 20:00] VITALS: BP 130/87
[2018-02-27] MEDS: QUETIAPINE FUMARATE 100 MG TABLET PO PRN (20:46)
--- NOTE | 2018-02-27 20:46 | NUR ---
PRN SEROQUEL 100 MG, ZOFRAN ODT AND ROBAXIN ADMINISTRATION Pt requests Seroquel for sleep. Pt complains of nausea without any episodes of vomiting and body aches 05/14. Safety measures in place. Call light within reach. Will continue to monitor. Addendum: 02/27/18 at 2311 by REED LOVE RN 1:1 sitter at bedside.
[2018-02-27] MEDS ORDERED: GABAPENTIN 300 MG CAPSULE PO SCH (21:00)
--- NOTE | 2018-02-27 21:16 | NUR ---
RASHI FAJARDO REASSESSMENT Pt reports nausea improved, no episodes of vomiting. Safety measures in place. Call light within reach. Will continue to monitor. Addendum: 02/27/18 at 2311 by REED LOVE RN 1:1 sitter at bedside.
--- NOTE | 2018-02-27 21:46 | NUR ---
PRN SEROQUEL AND ROBAXIN REASSESSMENT Pt remains awake, appears more fatigued. Pt reports "I still feel like shit," states Robaxin was ineffective. Safety measures in place. 1:1 sitter with patient. Will continue to monitor.
--- NOTE | 2018-02-28 | NUR ---
COWS/CIWA DEFERRED AND VITALS REFUSED Pt laying in bed with eyes closed, COWS/CIWA deferred, to be assessed when pt is awake per orders. Vitals refused. Respirations even and unlabored. Safety measures in place. Call light within reach. Will continue to monitor.
[2018-02-28 04:00] VITALS: BP 137/91
[2018-02-28] MEDS: HYDROXYZINE PAMOATE 25 MG CAPSULE PO PRN (04:22)
[2018-02-28] MEDS: CLONIDINE HCL 0.1 MG TABLET PO PRN (04:22)
--- NOTE | 2018-02-28 04:22 | NUR ---
PRN VISTARIL AND CLONIDINE ADMINISTRATION Pt presents with anxiety, agitation, intermittent sweat and chills. Safety measures in place. 1:1 sitter at bedside. Will continue to monitor.
[2018-02-28] MEDS: KETOROLAC TROMETHAMINE 30 MG INJ IM PRN (05:05)
[2018-02-28] MEDS: METHOCARBAMOL 750 MG TABLET PO PRN ×2 (05:05→21:29)
[2018-02-28] MEDS: VANCOMYCIN IV 2,000 MG in IV NORMAL SALINE 500 ML IV SCH ×3 (05:05→21:47)
--- NOTE | 2018-02-28 05:05 | NUR ---
PRN TORADOL AND ROBAXIN ADMINISTRATION Pt reports pain 8/10 generalized body aches and pain in arms. Safety measures in place. 1:1 sitter at bedside. Will continue to monitor.
--- NOTE | 2018-02-28 05:22 | NUR ---
PRN VISTARIL AND CLONIDINE REASSESSMENT Pt appears less anxious and agitated, reports slight improvement in chills. Safety measures in place. Call light within reach. Will continue to monitor.
--- NOTE | 2018-02-28 05:35 | NUR ---
PRN TORADOL REASSESSMENT Pt laying in bed with eyes closed, Toradol noted effective. Safety measures in place. 1:1 at bedside. Will continue to monitor.
--- NOTE | 2018-02-28 06:05 | NUR ---
PRN ROBAXIN REASSESSMENT Pt laying in bed with eyes closed, medication noted effective. Safety measures in place. 1:1 at bedside. Will continue to monitor.
--- NOTE | 2018-02-28 07:04 | NUR ---
END OF SHIFT Pt is a 22 y/o male admitted on 02/23/18 for benzo, ETOH, opiate, meth and cocaine withdrawal. Pt on a Ativan and Subutex taper that got extended yesterday. Pt presented with anxiety, restlessness, agitation, lethargy, fatigue, paranoia, worry, depression, flat affect, unkempt room, unshaven, difficulty falling and staying asleep, dysphoria, anhedonia. Pt was paranoid and stated, "I thought you guys were trying to harm me from the IV." Reeducated pt about IV antibiotics, pt verbalized understanding. Pt on IV Vancomycin. IV site in right forearm, IV site patent and intact. No redness, swelling or pain at IV site. Pt has cellulitis in BUE, MRSA and abscess in right AC. Awaiting ECHO and MRSA reevaluation results at this time. Pt on 1:1 for safety. Scheduled medications and PRN Seroquel, Zofran odt, Robaxin x 2, Vistaril, Clonidine, Toradol inj administered, effective in S/S of withdrawal AEB COWS 9 and CIWA 11 lowered to COWS 7 and CIWA 8 during shift. Pt slept 6 hours intermittently. Intake 1050 ml, void x 3, stool x 0. Safety measures in place. 1:1 sitter at bedside. Pts needs have been met. Endorsed to day shift nurse.
--- NOTE | 2018-02-28 07:30 | NUR ---
START OF SHIFT Rcvd endorse from ongoing nurse, client is in bed, sound asleep, easy to arouse, RR 16, even, non-labored. Client is on contact isolation for + MRSA blood, he is on antibiotic therapy Vancomycin 2gm IV in 0.9% NS 500mL Q8H. Peripheral line on R F/A 22G, running Vancomycin at prescribed rate. Client is on 1:1 sitter for unsteady gait. Modified 7 day Ativan taper/ 6 day Subutex taper, last day of tapers schedule for tomorrow. Client is afebrile, T 98.5. Last CIWA 8/COWS 7 @ 0400. PRN medications administered overnight and noted per protocol. Seizure precautions noted. Call light within reach.
[2018-02-28 08:55] VITALS: BP 130/87
[2018-02-28] MEDS: MULTIVITAMINS,THERAPEUTIC TABLET PO SCH (09:56)
[2018-02-28] MEDS: BUPRENORPHINE HCL 2 MG TAB.SUBL SL SCH ×2 (09:57→20:22)
[2018-02-28] MEDS: THIAMINE HCL 100 MG TABLET PO SCH (09:57)
[2018-02-28] MEDS: CLONIDINE HCL 0.1 MG TABLET PO SCH ×2 (09:57→21:00)
[2018-02-28] MEDS: FOLIC ACID 1 MG TABLET PO SCH (09:57)
[2018-02-28] MEDS: BACLOFEN 10 MG TABLET PO SCH (09:57)
[2018-02-28] MEDS: DICYCLOMINE HCL 20 MG TABLET PO SCH ×3 (09:58→20:23)
[2018-02-28] MEDS: LORAZEPAM 1 MG TABLET PO SCH ×3 (09:58→20:22)
[2018-02-28] MEDS: GABAPENTIN 300 MG CAPSULE PO SCH ×3 (09:58→20:22)
[2018-02-28] MEDS: MUPIROCIN 2% OINT 22 GM TUBE NS SCH ×2 (10:23→21:46)
[2018-02-28] MEDS: IV D5 1/2 NS 1000 ML 1,000 ML IV PRN (10:49)
[2018-02-28] MEDS ORDERED: IBUP-1955 PO (11:42)
[2018-02-28] MEDS ORDERED: DICY20TA28 PO (11:42)
[2018-02-28] MEDS ORDERED: GABA-534 PO (11:42)
[2018-02-28] MEDS ORDERED: HYDR-3895 PO (11:42)
[2018-02-28] MEDS ORDERED: SULF1TAB48 PO (11:42)
[2018-02-28] MEDS ORDERED: METH-406 PO (11:42)
[2018-02-28] MEDS ORDERED: CLON0.1T14 PO (11:42)
[2018-02-28] MEDS ORDERED: PANTOPRAZOLE SODIUM 40 MG VIAL IV ONE (12:00)
[2018-02-28 12:39] VITALS: BP 126/83
--- NOTE | 2018-02-28 13:37 | NUR ---
CLINICAL PHARMACY:VANCOMYCIN DOSING Subjective: Continue Vancomycin dosing on 22 y/0 6' 260lbs for left upper extremity cellulitis + positive BCx for MRSA sensitive to vanco Objecteive: BUN 7 (02/26) Scr 0.9 (02/26) WBC 8.9 (02/26) Temp 98.3 Trough: 16.7 02/27 @1330 Assessment/plan; Based on trough and repeat to confirm low level, continue same regimen of vanco 2gm q8hr for now. Will consider rechecking level if renal function were to change or if pt on prolonged course. Will follow
[2018-02-28] MEDS: BACLOFEN 20 MG TABLET PO SCH ×2 (15:57→20:22)
[2018-02-28 16:14] VITALS: BP 114/63
--- NOTE | 2018-02-28 17:30 | NUR ---
Client spoke with Mom. Mom's phone # [phone]
--- NOTE | 2018-02-28 19:12 | NUR ---
END OF SHIFT Endorse client to incoming nurse, client is in room, a/o x 4, he continues to present with depressed mood, flat affect, clammy skin, enlarged pupils, agitation, and difficulty concentrating. Adequate PO + IV fluid intake 1855mL, void x 1. Client continues on 1:1 for unsteady gait. Peripheral line on R F/A 22G running D5%,1/2NS 125mL/hr for hydration. Client consumes ~50% of meals. Client is non-compliant of group therapy. Last CIWA / 12 @ 1600. Seizure precautions in place. Contact isolation, + MRSA (blood). Call light within reach.
--- NOTE | 2018-02-28 19:30 | NUR ---
START OF SHIFT Pt is a 25 y/o male, A/A/O X 4, received in room, anxious and somewhat agitated,c/o feeling nauseated but does not want to take Zofran as ordered. Pt continues on 1:1 close observation with a male staff for unsteady gait. Peripheral line on R F/A 22G running D5%,1/2NS 125mL/hr for hydration. Last WA 12 @ 1600. Seizure precautions in place. Contact isolation, + MRSA (blood). Call light within reach, will continue to monitor. Addendum: 03/01/18 at 0712 by ELISEO GARDNER RN PT IS A 22 Y/O MALE.
[2018-02-28 20:00] VITALS: BP 123/64
[2018-02-28] MEDS: ONDANSETRON 4 MG/2 ML VIAL IM PRN (21:26)
--- NOTE | 2018-02-28 21:26 | NUR ---
PRN ZOFRAN IM ADMINISTRATION PT HAS BEEN C/O FEELING NAUSEATED BUT REFUSED TO TAKE ORAL ZOFRAN,SAID "IT DOES NOT WORK".PT HAD AN EPISODE OF VOMITING A LARGE AMOUNT OF FLUID.ZOFRAN IM GIVEN ORDERED.WILL CONTINUE TO MONITOR.
[2018-02-28] MEDS: QUETIAPINE FUMARATE 100 MG TABLET PO PRN (21:31)
--- NOTE | 2018-02-28 21:31 | NUR ---
PRN MEDS PRN ROBAXIN GIVEN FOR C/O MUSCLE ACHES.PRN SEROQUEL GIVEN FOR C/O INSOMNIA.WILL MONITOR FOR EFFECTIVENESS.
--- NOTE | 2018-02-28 21:55 | NUR ---
CLONIDINE HELD DUE TO DECREASED HEART RATE OF 55.
--- NOTE | 2018-02-28 21:56 | NUR ---
ZOFRAN IM REASSESSMENT ZOFRAN IM IS EFFECTIVE.PT IS NOT C/O N/V ANY MORE.SEEN EATING ICE CREAM AND IS TOLERATING WELL.WILL CONTINUE TO MONITOR.
--- NOTE | 2018-02-28 22:30 | NUR ---
PRN REASSESSMENT PRN ROBAXIN AND SEROQUEL ARE EFFECTIVE.PT IS CALM AND RESTING IN BED WITH EYES CLOSED,APPEARS TO BE IN DEEP SLEEP.NO S/S OF DISTRESS NOTED.1:1 STAFF IS AT BEDSIDE,WILL CONTINUE TO MONITOR.
--- NOTE | 2018-03-01 | NUR ---
COWS/CIWA DEFERRED AND VITALS REFUSED Pt laying in bed with eyes closed, sleeping deeply.COWS/CIWA deferred d/t being asleep. Vitals refused. Respirations even and unlabored. Safety measures in place. Call light within reach.Sitter is at bedside. Will continue to monitor.
[2018-03-01] MEDS: IV D5 1/2 NS 1000 ML 1,000 ML IV PRN ×2 (00:02→08:45)
[2018-03-01 04:00] VITALS: BP 136/84
[2018-03-01] MEDS: IBUPROFEN 600 MG TABLET PO PRN ×2 (04:11→21:59)
[2018-03-01] MEDS: HYDROXYZINE PAMOATE 25 MG CAPSULE PO PRN ×2 (04:11→15:06)
--- NOTE | 2018-03-01 04:13 | NUR ---
PRN MEDS PT C/O ANXIETY AND BODYACHE,03/14.PRN MEDS VISTARIL AND MOTRIN GIVEN ORDERED.WILL CONTINUE TO MONITOR.
--- NOTE | 2018-03-01 05:15 | NUR ---
PRN F/U PT IS CALM AND RESTING IN BED WITH EYES CLOSED,SITTER IS AT BED SIDE,WILL CONTINUE MONITORING.
[2018-03-01] MEDS: VANCOMYCIN IV 2,000 MG in IV NORMAL SALINE 500 ML IV SCH ×2 (06:14→15:05)
--- NOTE | 2018-03-01 06:47 | NUR ---
END OF SHIFT Pt is a 25 y/o male, A/O X 4, continues on 1:1 close observation with a male staff for unsteady gait. Peripheral line on R F/A 22G running D5%,1/2NS 125mL/hr for hydration. Last CI 10 @ 0400. Seizure precautions in place. Contact isolation, + MRSA (blood).Pt continues on Vancocin IV as ordered and is tolerating well.No A/R noted.PRN meds given during the night :-Zofran 4 mg IM, Robaxin 750 mg PO, Seroquel 100 mg PO,Motrin 600 mg PO and Vistaril 25 mg PO.Pt slept 7 hrs intermittently,PO fluid intake was 850 mls, IV fluid intake was 1625 mls, emesis x1 was 300 mls,voided x 2. All safety measures in place. Call light within reach, sitter remains at bedside, will continue to monitor. Addendum: 03/01/18 at 0713 by ELISEO GARDNER RN ERROR---PT IS A 22 Y/O MALE.
[2018-03-01 07:07] LABS: MAGNESIUM 1.9 mg/dL (1.8-2.4); POTASSIUM 3.6 mmol/L (3.5-5.1)
--- NOTE | 2018-03-01 07:10 | NUR ---
START OF SHIFT: PATIENT IS A 22 YR OLD MALE ADMITTED TO [facility] ON 02/23/18 FOR A MEDICALLY SUPERVISED WITHDRAWAL FROM ALCOHOL, BENZODIAZEPINES, OPIATES ( HEROIN/HYDROCODONE) , METH , COCAINE AND MARIJUANA. HE IS ON AN ATIVAN/ SUBUTEX TAPER. HE IS CURRENTLY RECEIVING VANCOMYCIN IV Q 8H FOR MRSA BACTEREMIA. HE HAS D5 1/2 NS INFUSING @ 125 CC/HR. PRN MEDS GIVEN ON PM SHIFT : ZOFRAN, VISTARIL, ROBAXIN AND MOTRIN. HE SLEPT INTERMITTENTLY FOR 7 HOURS, LAST COWS 10 AND CIWA 10 @ 0400. CONTINUE TO FOLLOW MD PLAN OF CARE.
[2018-03-01 07:19] LABS: BASOPHILS % (AUTO) 0.4 % (0.0-2.0); EOSINOPHILS # (AUTO) 0.2 K/uL (0.0-0.7); EOSINOPHILS % (AUTO) 3.5 % (0.0-7.0); HEMATOCRIT 40.2 % (36.7-47.1); HEMOGLOBIN 14.2 g/dL (12.5-16.3); LYMPHOCYTES # (AUTO) 1.7 K/uL (20.0-40.0); LYMPHOCYTES % (AUTO) 25.6 % (20.5-51.5); MEAN CORPUSCULAR HGB CONC 35 g/dL (32.5-36.3); MEAN CORPUSCULAR VOLUME 87.5 fL (73.0-96.2); MONOCYTES # (AUTO) 0.6 K/uL (2.0-10.0); NEUTROPHILS # (AUTO) 4.1 K/uL (1.8-8.9); NEUTROPHILS % (AUTO) 61.5 % (38.5-71.5); PLATELET COUNT (AUTO) 297 K/uL (152-348); RED BLOOD CELL COUNT(AUTO) 4.59 MIL/uL (4.06-5.63)
[2018-03-01 07:37] LABS: WHITE BLOOD COUNT (AUTO) 6.6 K/uL (3.6-10.2)
[2018-03-01] MEDS: MULTIVITAMINS,THERAPEUTIC TABLET PO SCH (08:21)
[2018-03-01] MEDS: GABAPENTIN 300 MG CAPSULE PO SCH ×3 (08:21→21:59)
[2018-03-01] MEDS: BACLOFEN 20 MG TABLET PO SCH ×3 (08:21→21:59)
[2018-03-01] MEDS: DICYCLOMINE HCL 20 MG TABLET PO SCH ×3 (08:21→22:00)
[2018-03-01] MEDS: FOLIC ACID 1 MG TABLET PO SCH (08:21)
[2018-03-01] MEDS: CLONIDINE HCL 0.1 MG TABLET PO SCH ×2 (08:22→22:00)
[2018-03-01] MEDS: THIAMINE HCL 100 MG TABLET PO SCH (08:22)
[2018-03-01 08:30] VITALS: BP 121/69
--- NOTE | 2018-03-01 08:30 | NUR ---
PRN ZOFRAN ZOFRAN 4MG IM GIVEN FOR N/V, WILL REASSESS
[2018-03-01] MEDS: ONDANSETRON 4 MG/2 ML VIAL IM PRN ×2 (08:32→21:59)
[2018-03-01] MEDS: MUPIROCIN 2% OINT 22 GM TUBE NS SCH ×2 (09:00→11:42)
[2018-03-01] MEDS ORDERED: LORAZEPAM 1 MG TABLET PO SCH (09:00)
[2018-03-01] MEDS ORDERED: BUPRENORPHINE HCL 2 MG TAB.SUBL SL SCH (09:00)
--- NOTE | 2018-03-01 09:30 | NUR ---
ZOFRAN REASSESS N/V HAS STOPPED, ZOFRAN 4MG IM EFFECTIVE, WILL CONTINUE TO MONITOR
[2018-03-01 12:00] VITALS: BP 122/88
--- NOTE | 2018-03-01 14:31 | NUR ---
CLINICAL PHARMACY:VANCOMYCIN DOSING Subjective: Continue Vancomycin dosing on 22 y/0 6' 260lbs for left upper extremity cellulitis + positive BCx for MRSA sensitive to vanco Objecteive: BUN 8 Scr 1.0 WBC 6.6 Temp 98.2 repeat trough: 20.9 Assessment/plan; Due to obesity and larger volume of distribution, initial trough may not have been at true steady state, repeat trough was ordered for today. Based on today's trough, changed regimen to 2gm q9hr, 2nd dose today at 1500, for new estimated trough of 16.8. Next trough ordered before 4th scheduled dose due tomorrow at 0830. Will check trough and adjust as needed. Will follow
--- NOTE | 2018-03-01 15:00 | NUR ---
PRN VISTARIL VISTARIL 25MG PO GIVEN FOR REPORTS OF INCREASED ANXIETY, WILL REASSESS
--- NOTE | 2018-03-01 16:00 | NUR ---
PRN REASSESS VISTARIL 25 MG PO EFFECTIVE, PT TOOK A 1HR NAP AND APPEARS LESS ANXIOUS, WILL CONTINUE TO MONITOR
[2018-03-01 16:51] VITALS: BP 122/61
[2018-03-01] MEDS ORDERED: LORAZEPAM 1 MG TABLET PO PRN (18:15)
--- NOTE | 2018-03-01 18:30 | NUR ---
PRN ATIVAN/ SUBUTEX ATIVAN 1MG PO GIVEN FOR CIWA 11 SUBUTEX 2MG SL GIVEN FOR COWS 12 WILL CONTINUE TO MONITOR
[2018-03-01] MEDS: LORAZEPAM 1 MG TABLET PO PRN (18:32)
[2018-03-01] MEDS: BUPRENORPHINE HCL 2 MG TAB.SUBL SL PRN (18:32)
--- NOTE | 2018-03-01 18:42 | NUR ---
END OF SHIFT : PATIENT IS A 25 YR OLD MALE ADMITTED TO [facility] ON 02/23/18 FOR A MEDICALLY SUPERVISED WITHDRAWAL FROM ALCOHOL, BENZODIAZEPINES, OPIATES, METH, COCAINE AND MARIJUANA. HE IS ON A MODIFIED ATIVAN/ SUBUTEX TAPER TOLERATED WELL. HE HAS IV VANCOMYCIN 2G Q9H FOR MRSA BACTEREMIA, IV SITE PATENT IN RIGHT WRIST. PATIENT IS ON ISOLATION PRECAUTIONS BUT MAY GO TO SMOKE ON PRIVATE PATIO WITH 1:1 SITTER USING A WHEELCHAIR FOR UNSTEADY GAIT. PRN MEDS GIVEN THIS SHIFT : ZOFRAN 4MG IM, VISTARIL 25MG PO, ATIVAN 1MG PO AND SUBUTEX 2MG SL. HE HAS INTERMITTENT NAUSEA THAT IS WELL CONTROLLED WITH ZOFRAN. PATIENT TOOK A SHOWER THIS AM AND IS EATING MOST OF HIS MEALS AND TAKING IN ADEQUATE PO FLUIDS, IV FLUIDS PRN FOR INABILITY TO MAINTAIN PO FLUID INTAKE. PATIENT HAD A PO FLUID INTAKE OF 2000ML AND IV INTAKE 1125ML, 3 VOIDS AND 0 BM. LAST COWS 12 AND CIWA 11 @ 1830. CONTINUE TO FOLLOW MD PLAN OF CARE. ENDORSED TO NIGHT NURSE. Addendum: 03/01/18 at 1852 by YUDITH NICHOLAS RN HE IS A 22 YR OLD MALE
--- NOTE | 2018-03-01 19:17 | NUR ---
PRN REASSESS PATIENT STATES HE FEELS MORE RELAXED AND LESS ANXIOUS, ATIVAN AND SUBUTEX EFFECTIVE, CONTINUE TO MONITOR
--- NOTE | 2018-03-01 19:30 | NUR ---
START OF SHIFT Pt is a 22 y/o male, A/A/O X 4,admitted for multiple substance withdrawals, continues on 1:1 close observation with a male staff for unsteady gait. Pt has IV site on right forearm, patent and intact. Last CIWA 12 @ 1830. Seizure precautions in place. Contact isolation, + MRSA (blood).Pt continues on Vancocin IV as ordered and is tolerating well.No A/R noted. Pt states feeling better, no c/o nausea noted at this time.All safety measures in place. Call light within reach, sitter remains at bedside, will continue to monitor.
[2018-03-01 20:00] VITALS: BP 136/88
--- NOTE | 2018-03-01 21:29 | NUR ---
PRN MEDS PT C/O NAUSEA AND VOMITED X 1.ZOFRAN IM GIVEN ORDERED. ALSO C/O BODYACHE AND INSOMNIA.PRN MOTRIN AND SEROQUEL GIVEN PER ORDERS. WILL MONITOR FOR EFFECTIVENESS. Addendum: 03/01/18 at 2240 by ELISEO GARDNER RN WRONG TIME DOCUMENTED.PRN MEDS WERE GIVEN AT 1477.
[2018-03-01] MEDS: QUETIAPINE FUMARATE 100 MG TABLET PO PRN (21:59)
--- NOTE | 2018-03-01 22:11 | NUR ---
PRN MOM GIVEN FOR C/O CONSTIPATION.PO FLUIDS ENCOURAGED.WILL MONITOR FOR EFFECTIVENESS.
--- NOTE | 2018-03-01 22:29 | NUR ---
PRN ZOFRAN REASSESSMENT PT DENIES ANY C/O NAUSEA/VOMITING.PRN IS EFFECTIVE.
--- NOTE | 2018-03-01 22:30 | NUR ---
PRN F/U PT IS STILL AWAKE ,RESTING IN BED,FEELING SLEEPY,MOTRIN IS EFFECTIVE IN CONTROLLING PAIN.WILL CONTINUE TO MONITOR.
[2018-03-02] VITALS: BP 138/90
--- NOTE | 2018-03-02 | NUR ---
VANCOCIN IV HELD PER MD ORDER D/T TROUGH LEVEL GREATER THAN 20.MD NOTIFIED.
--- NOTE | 2018-03-02 | NUR ---
COWS/CIWA DEFERRED D/T PT BEING ASLEEP.SITTER IS AT BEDSIDE,WILL CONTINUE TO MONITOR.
[2018-03-02] MEDS: LORAZEPAM 1 MG TABLET PO PRN ×5 (01:55→23:44)
[2018-03-02] MEDS: BUPRENORPHINE HCL 2 MG TAB.SUBL SL PRN ×2 (01:58→18:08)
--- NOTE | 2018-03-02 01:58 | NUR ---
PRN ATIVAN/ SUBUTEX ATIVAN 1MG PO GIVEN FOR CIWA 8 AND SUBUTEX 2MG SL GIVEN FOR COWS 12 WILL CONTINUE TO MONITOR FOR EFFECTIVENESS.
--- NOTE | 2018-03-02 03:00 | NUR ---
PRN F/U PT IS CALM AND SLEEPING IN BED PEACEFULLY.BREATHING IS EVEN AND NON LABORED,NO S/S OF DISTRESS NOTED,UNABLE TO ASSESS CIWA/COWS AT THIS TIME.WILL CONTINUE TO MONITOR.
--- NOTE | 2018-03-02 04:00 | NUR ---
COWS/CIWA DEFERRED D/T PT BEING ASLEEP.SITTER IS AT BEDSIDE. V/S REFUSED.WILL CONTINUE TO MONITOR.
--- NOTE | 2018-03-02 06:38 | NUR ---
END OF SHIFT Pt is a 22 y/o male, A/A/O X 4,admitted for multiple substance withdrawals, continues on 1:1 close observation with a male staff for unsteady gait. Pt has IV site on right forearm, patent and intact. Last CIWA / 12 @ [id number]. Seizure precautions in place. Contact isolation, + MRSA (blood).Pt continues on Vancocin IV as ordered and is tolerating well.Midnight dose of Vancocin was held per order d/t trough level greater than 20.PRN meds given :--Zofran,motrin,Seroquel,MOM,Ativan and Subutex were given and were effective. Pt slept 6 hrs,fluid intake was 1446 mls,voided x 2, B/M X 1 . All safety measures in place, sitter is at bedside. Call light within reach, will continue to monitor.
--- NOTE | 2018-03-02 07:15 | NUR ---
START OF SHIFT: PATIENT IS A 22YR OLD MALE ADMITTED TO [facility] ON 02/23/18 FOR A MEDICALLY SUPERVISED WITHDRAWAL FROM ALCOHOL, BENZODIAZEPINES, OPIATES, METH AND COCAINE. HE HAS COMPLETED A MODIFIED ATIVAN/ SUBUTEX TAPER BUT BECAUSE OF HIS PROLONGED STAY DUE TO MRSA BACTEREMIA REQUIRING IV VANCOMYCIN HE HAS PRN ATIVAN AND SUBUTEX AVAILABLE UNTIL 1800 TONIGHT. PATIENT RECEIVES IV VANCOMYCIN 2G Q9HRS, TROUGH TO BE DRAWN AT 1630 TODAY AND PHARMACY WILL ADJUST DOSING NEEDED. IV SITE IS PATENT AND INFUSING ON RIGHT WRIST. PRN MEDS GIVEN ON PM SHIFT: ZOFRAN, MOTRIN, SEROQUEL, ATIVAN AND SUBUTEX. HE SLEPT FOR 6 HOURS AND LAST COWS 12 AND CIWA 8 @ 0200. PATIENT IS AWAKE IN BED AT THIS TIME WATCHING TV. CONTINUE TO FOLLOW MD PLAN OF CARE.
[2018-03-02] MEDS: VANCOMYCIN IV 2,000 MG in IV NORMAL SALINE 500 ML IV SCH ×4 (07:25→15:59)
--- NOTE | 2018-03-02 07:30 | NUR ---
ANG AMAYA VANCOMYCIN 2G JOSE LUIS @ 0975, IV SITE RIGHT WRIST INFUSING
[2018-03-02] MEDS: FOLIC ACID 1 MG TABLET PO SCH (08:24)
[2018-03-02] MEDS: THIAMINE HCL 100 MG TABLET PO SCH (08:24)
[2018-03-02] MEDS: MULTIVITAMINS,THERAPEUTIC TABLET PO SCH (08:24)
[2018-03-02] MEDS: MUPIROCIN 2% OINT 22 GM TUBE NS SCH ×2 (08:24→21:33)
[2018-03-02] MEDS: CLONIDINE HCL 0.1 MG TABLET PO SCH ×2 (08:24→21:32)
[2018-03-02] MEDS: BACLOFEN 20 MG TABLET PO SCH ×3 (08:24→21:33)
--- NOTE | 2018-03-02 08:24 | NUR ---
PRN ATIVAN ATIVAN 1MG PO GIVEN FOR CIWA 13 , INCREASED AGITATION, WILL REASSESS
[2018-03-02] MEDS: DICYCLOMINE HCL 20 MG TABLET PO SCH ×3 (08:25→21:32)
[2018-03-02] MEDS: GABAPENTIN 300 MG CAPSULE PO SCH ×3 (08:25→21:33)
[2018-03-02 08:30] VITALS: BP 121/67
--- NOTE | 2018-03-02 09:24 | NUR ---
PRN ATIVAN REASSESS PATIENT IS ASLEEP IN BED, BREATHING EVEN AND UNLABORED, SITTER AT BEDSIDE
[2018-03-02 12:00] VITALS: BP 122/84
--- NOTE | 2018-03-02 14:00 | NUR ---
IV RESTART IV RIGHT WRIST INFILTRATED, 22G STARTED IN RIGHT HAND, PATENT UPON FLUSH. DUE TO PT BEING A HARD STICK , PLACED ORDER FOR MIDLINE IV INSERTION, IV NURSE WILL BE HERE THIS EVENING TO PLACE LINE.
--- NOTE | 2018-03-02 14:03 | NUR ---
CLINICAL PHARMACY:VANCOMYCIN DOSING Subjective: Continue Vancomycin dosing on 22 y/0 6' 260lbs for left upper extremity cellulitis + positive BCx for MRSA sensitive to vanco Objecteive: BUN 8(03/01) Scr 1.0(03/01) WBC 6.6(03/01) Temp 98.4 Assessment/plan; Second dose of Vancomycin was due midnight but was not given(nurse thought since trough is 20.9, they should held dose but Rx already adjusted the dose based on trough during the day). Instructed nurse to give missed dos BRENNAN(given today at 700) and continue 2 grams IV every 9hrs(second dose today at 1600) for expected trough around 16. Vancomycin trough is on order prior to 4th dose tomorrow at 0930. Will follow the level.
--- NOTE | 2018-03-02 14:15 | NUR ---
PRN ATIVAN ATIVAN 1MG PO GIVEN FOR INCREASED ANXIETY, CIWA 10, WILL CONT TO MONITOR
--- NOTE | 2018-03-02 15:15 | NUR ---
PRN REASSESS ATIVAN 1MG PO EFFECTIVE, PT STATES HE FEELS LESS ANXIOUS
[2018-03-02 16:00] VITALS: BP 139/58
--- NOTE | 2018-03-02 16:45 | NUR ---
Client was prompted to attend daily group sessions. Client related that he would attend the next group.
--- NOTE | 2018-03-02 17:00 | NUR ---
MIDLINE INSERTED RIGHT UPPER ARM
--- NOTE | 2018-03-02 18:00 | NUR ---
PRN ATIVAN/SUBUTEX ATIVAN 1MG PO AND SUBUTEX 2MG SL, GIVEN FOR S/S OF WITHDRAWALS, AGITATION AND ANXIETY, CONT TO MONITOR Addendum: 03/02/18 at 1822 by YUDITH NICHOLAS RN [facility] 12 ASHLYN 12 @ 1800
--- NOTE | 2018-03-02 18:01 | NUR ---
RIGHT HAND IV DC'D MIDLINE IN FOR CONTINUED ANTIBIOTICS
--- NOTE | 2018-03-02 18:56 | NUR ---
PRN REASSESS PATIENT APPEARS LESS " STRESSED AND ANXIOUS" LAYING IN BED WITH EYES CLOSED, MEDICATIONS EFFECTIVE, CONT TO MONITOR
--- NOTE | 2018-03-02 19:09 | NUR ---
END OF SHIFT : PATIENT IS A 22 YR OLD MALE ADMITTED TO [facility] ON 02/23/18 FOR A MEDICALLY SUPERVISED DETOX FROM ALCOHOL, BENZOS, OPIATES, METH AND COCAINE. HE HAS COMPLETED A MODIFIED ATIVAN/ SUBUTEX TAPER. HE IS ON IV VANCOMYCIN 2G Q9H FOR MRSA BACTEREMIA. A MIDLINE IV WAS PLACED TODAY FOR CONTINUED IV ACCESS FOR ANTIBIOTICS. HE IS ON A 1:1 FOR UNSTEADY GAIT AND IS ON ISOLATION BUT MAY GO TO PRIVATE PATIO. PRN MEDS GIVEN ON THIS SHIFT: ATIVAN 1MG PO X3 AND SUBUTEX 2MG SL X1. FLUID INTAKE THIS SHIFT PO 1500 + IV 1000ML, 2 VOIDS AND 0 BM. LAST COWS 12 AND CIWA 12 @ 1800. CONTINUE TO FOLLOW MD PLAN OF CARE. ENDORSED TO COOK 3 PASTRY.
--- NOTE | 2018-03-02 19:30 | NUR ---
Start of Shift Note Received a 22 y/o male px, admitted for medically supervised withdrawals from Benzo, ETOH, opiates. Px was placed on modified Ativan and Subutex taper, last doses given 03/01/2018. Px tolerated them. Px is still on 1 to 1 due to unsteady gait. Reported that px has midline IV access on right arm. Last reported COWS 12 and CIWA 12 by AM shift nurse. Px is on isolation due to infection. During the rounds at 1930, px is awake on bed in fowlers position. Px appears disheveled, anxious, with flat affect and poor eye contact. Unfinished snacks and drinks all over the bed side table and top of cabinet. Soiled clothes noted on the floor. Midline IV access flushed with 10 cc NS. Px stated "my anxiety is 9/10 and I have body aches 6/10." Bed on lowest position, side rails up 2x and call light within reach. We'll continue to monitor.
[2018-03-02 20:00] VITALS: BP 146/79
[2018-03-02] MEDS: ONDANSETRON ODT 4 MG TAB.RAPDIS SL PRN (21:33)
--- NOTE | 2018-03-02 21:33 | NUR ---
PRN medications At 2132, px received Zofran 4 mg/tab PRN, 1 tab SL for nausea. At 2343, px received Ativan 1 mg/tab PRN, 1 tab PO for CIWA of 10 and Seroquel 100 mg/tab PRN, 1 tab PO for insomnia. We'll continue to monitor.
--- NOTE | 2018-03-02 22:05 | NUR ---
Reassessment of Nausea Px stated that his nausea improved.
[2018-03-02] MEDS ORDERED: BUPRENORPHINE HCL 2 MG TAB.SUBL SL PRN (23:00)
[2018-03-02] MEDS ORDERED: LORAZEPAM 1 MG TABLET PO PRN (23:00)
[2018-03-02] MEDS: QUETIAPINE FUMARATE 100 MG TABLET PO PRN (23:44)
[2018-03-03] VITALS: BP 149/77
--- NOTE | 2018-03-03 01:20 | NUR ---
IV Vancomycin Vancomycin 2 G in 500 ml NS hooked as IV antibiotic q 9 hours running at 250 ml per hour inserted to a midline on right arm. We'll continue to monitor.
[2018-03-03] MEDS: VANCOMYCIN IV 2,000 MG in IV NORMAL SALINE 500 ML IV SCH ×3 (01:21→18:27)
[2018-03-03 04:00] VITALS: BP 132/74
--- NOTE | 2018-03-03 07:10 | NUR ---
End of Shift Note During the shift at 2133, px received Zofran 4 mg PO for nausea, it was effective. At 2344, px received Ativan 1 mg PO and Seroquel 100 mg PO as PRN medications for anxiety and insomnia. At 0120, Vancomycin 2 G in 500 ml NS q 9 hours hooked as IV antibiotic on midline IV access inserted on right arm. Trough level to determine before the next dose of Vancomycin. Px's oral intake is 800 ml, voided 2x, No BM. Px slept for a total of 5.5 hours. Last COWS 9 and CIWA 9. At 0630, px is asleep on bed in fowlers position. Bed on lowest position, side rails up 2x and call light within reach. We'll continue to monitor.
--- NOTE | 2018-03-03 07:30 | NUR ---
Start of Shift Pt. is a 22 y/o male admitted for the medically managed withdrawal of Benzodiazepines, Methamphetamines salts, and opiates. Pt. was ordered a subutex and ativan taper which he completed. During the Pm shift pt. was given PRN Zofran, Ativan, and seroquel. Pt. continues his IV antibiotics administered through his midline IV access inserted on right arm. Trough level to be determine before the next dose of Vancomycin is administered. Pt slept for a total of 5.5 hours. Last COWS 9 and CIWA 9. At 0630. Received pt. in bed with eyes closed. Pt. arousable to name and touch. Bed on lowest position, side rails up 2x and call light within reach. We'll continue to monitor pt.s behavior for safety.
[2018-03-03 08:00] VITALS: BP 120/76
[2018-03-03] MEDS: GABAPENTIN 300 MG CAPSULE PO SCH ×3 (09:41→20:36)
[2018-03-03] MEDS: DICYCLOMINE HCL 20 MG TABLET PO SCH ×3 (09:42→20:36)
[2018-03-03] MEDS: MUPIROCIN 2% OINT 22 GM TUBE NS SCH ×2 (09:43→20:36)
[2018-03-03] MEDS: CLONIDINE HCL 0.1 MG TABLET PO SCH ×2 (09:43→20:35)
[2018-03-03] MEDS: BACLOFEN 20 MG TABLET PO SCH ×3 (09:43→20:36)
[2018-03-03] MEDS: FOLIC ACID 1 MG TABLET PO SCH (09:43)
[2018-03-03] MEDS: MULTIVITAMINS,THERAPEUTIC TABLET PO SCH (09:43)
[2018-03-03] MEDS: THIAMINE HCL 100 MG TABLET PO SCH (09:43)
--- NOTE | 2018-03-03 10:30 | NUR ---
PRN Medication. Pt. complains on anxiety and request Ativan. Pt. presents with flushed facial skin, and restless unable to sit still. Gave ativan 1mg at this time will continue to monitor pt.'s behavior for safety and medication effectiveness.
[2018-03-03] MEDS: LORAZEPAM 1 MG TABLET PO PRN (10:31)
--- NOTE | 2018-03-03 11:30 | NUR ---
PRN Re-Assessment Pt. laying in bed with eyes closed arousable to name and touch. Medication effective. Will continue to monitor pt. fo safety.
[2018-03-03 12:00] VITALS: BP 117/72
--- NOTE | 2018-03-03 12:33 | NUR ---
CLINICAL PHARMACY:VANCOMYCIN DOSING Subjective: Continue Vancomycin dosing on 22 y/0 6' 260lbs for left upper extremity cellulitis + positive BCx for MRSA sensitive to vanco Objecteive: BUN 8(03/01) Scr 1.0(03/01) WBC 6.6(03/01) Temp 98.1 Vancomycin trough today at 0930:14.3 Assessment/plan; Since Vancomycin trough is within the therapeutic range, will continue same dose of Vancomycin 2 gram IV every 9 hrs(4th dose given today at 1030). Will continue to monitor daily.
[2018-03-03 17:21] VITALS: BP 134/90
[2018-03-03] MEDS: BUPRENORPHINE HCL 2 MG TAB.SUBL SL SCH ×2 (18:27→20:35)
[2018-03-03] MEDS: LORAZEPAM 1 MG TABLET PO SCH ×2 (18:27→20:35)
--- NOTE | 2018-03-03 19:25 | NUR ---
End of Shift Pt. is a 22 y/o male admitted for the medically managed withdrawal of Benzodiazepines, Methamphetamines salts, and opiates. Pt. was ordered a subutex and ativan taper which he completed. Upon further assessment however MD ordered another subutex and ativan taper which began today and is set to finish on 03/07/18. Only PRN medication given was ativan. Pt. continues his IV antibiotics administered through his midline IV access inserted on right arm. Trough level drawn this AM and medication okay to give. Pt. presents with facial flushing and anxiety. Upon approach pt. is guarded with a blunted affect. Encouraged pt. to keep his person and personal space clean and hygienic. Bed on lowest position, side rails up 2x and call light within reach. Will endorse pt.s behavior and care to oncoming shift.
--- NOTE | 2018-03-03 19:50 | NUR ---
Start of Shift Note Received a 22 y/o male px, admitted for medically supervised withdrawals from Benzo, ETOH, opiates. Px is placed on extended 4 day Ativan and 5 day Subutex taper, last doses will be on 03/07/2018. Px is still on 1 to 1 due to unsteady gait. Last reported COWS 8 and CIWA 8 by AM shift nurse. Px is on isolation due to infection. During the rounds at 1950, px is awake on bed in fowlers position. Vancomycin Px appears disheveled, anxious, with flat affect and poor eye contact. Unfinished snacks and drinks all over the bed side table and top of cabinet. Soiled clothes noted on the floor. Midline IV access flushed with 10 cc NS. Px stated "my anxiety is 9/10 and I have body aches 6/10." Bed on lowest position, side rails up 2x and call light within reach. We'll continue to monitor.
[2018-03-03 20:00] VITALS: BP 132/83
[2018-03-03] MEDS: ONDANSETRON 4 MG/2 ML VIAL IM PRN (21:41)
--- NOTE | 2018-03-03 21:41 | NUR ---
PRN Zofran inj Px received Zofran 4 mg injection given IM on left deltoids as PRN for vomiting 1x approximately 500 ml of emesis. We'll continue to monitor.
[2018-03-03] MEDS: METHOCARBAMOL 750 MG TABLET PO PRN (21:56)
--- NOTE | 2018-03-03 21:56 | NUR ---
PRN Robaxin Px received Robaxin 750 mg/tab, 1 tab PO as PRN med for generalized body pain of 7/10. We'll continue to monitor.
--- NOTE | 2018-03-03 22:10 | NUR ---
Reassessment of N/V Px stated that his nausea improved and no more vomit. We'll continue to monitor.
--- NOTE | 2018-03-03 23:00 | NUR ---
Reassessment of pain Px stated that his pain improved from 7/10 to 5/10. We'll continue to monitor.
[2018-03-04] VITALS: BP 126/85
[2018-03-04] MEDS: QUETIAPINE FUMARATE 100 MG TABLET PO PRN ×2 (00:23→22:21)
[2018-03-04] MEDS: ONDANSETRON ODT 4 MG TAB.RAPDIS SL PRN ×2 (00:23→20:08)
--- NOTE | 2018-03-04 00:23 | NUR ---
PRN medications Px received Zofran 4 mg/tab, 1 tab SL for emesis 1x and Seroquel 100 mg/tab, 1 tab PO as PRN medications. We'll continue to monitor.
--- NOTE | 2018-03-04 01:00 | NUR ---
Reassessment of N/V Px stated that his nausea improved and no more episode of vomiting. We'll continue to monitor.
[2018-03-04 04:00] VITALS: BP 128/82
--- NOTE | 2018-03-04 04:00 | NUR ---
COWS and CIWA deferred COWS and CIWA deferred due to the px is asleep, to assess if the px is awake per doctor's order. We'll continue to monitor.
--- NOTE | 2018-03-04 04:30 | NUR ---
IV Vanco Midline IV access inserted on right arm flushed with 10 cc NS. IV Vancomycin 2 G in 500 cc of NS q9h hooked as IV antibiotic running at 250 cc/hr.
[2018-03-04] MEDS: VANCOMYCIN IV 2,000 MG in IV NORMAL SALINE 500 ML IV SCH ×3 (04:32→23:18)
--- NOTE | 2018-03-04 07:10 | NUR ---
End of Shift Note During the shift at 214, px received Zofran 4 mg IM for N/V. At 2156, px received Robaxin 750 mg/tab, 1 tab given PO for pain of 7/10, it was effective. at 0023, px received Zofran 4 mg, 1 tab SL as PRN med. It was effective. Seroquel 100 mg, 1 tab was also given as PRN med for insomnia. Pxs oral intake is 750 ml, voided 2x, BM 1x and vomited 2x, approximately 500 ml. Px slept for 4 hours. At 0630, px is asleep on bed in fowlers position. Bed on lowest position, side rails up 2x and call light within reach. We'll continue to monitor. Px endorsed to AM shift nurse.
--- NOTE | 2018-03-04 07:45 | NUR ---
START OF SHIFT Rcvd endorse from ongoing nurse, client is sitting in bed, a/o x 4, he presents with depressed mood, flat affect, clammy skin, and difficulty concentrating, Midline R arm, patent, dressing intact, on antibiotic therapy Vancomycin for bilateral arm cellulitis. Client is disheveled, strong body odor, chapped lips, and flushed face. Room noted with scattered clothes on the floor. Client is hoarding snacks in room. Client reports generalized body aches 5/10, anxiety , sweats, abdominal cramps, nausea, vomiting, and loss of appetite. Client is on 1:1 sitter for unsteady gait. Encourage client to drink PO fluids as tolerated to facilitate detox. Encourage client to attend group therapy to learn skills to maintain sober. Last WA 10 @ 2400. PRN Zofran 4mg SL, Zofran 4mg Im, for emesis/nausea, Robaxin 750mg PO for myalgia, Seroquel 100mg PO for inability to sleep, client slept 4 hrs. Seizure precautions in place. Call light within reach.
[2018-03-04 08:55] VITALS: BP 126/84
[2018-03-04] MEDS ORDERED: LORAZEPAM 1 MG TABLET PO SCH (09:00)
[2018-03-04] MEDS: MULTIVITAMINS,THERAPEUTIC TABLET PO SCH (09:56)
[2018-03-04] MEDS: CLONIDINE HCL 0.1 MG TABLET PO SCH ×2 (09:56→20:18)
[2018-03-04] MEDS: DICYCLOMINE HCL 20 MG TABLET PO SCH ×3 (09:56→20:18)
[2018-03-04] MEDS: THIAMINE HCL 100 MG TABLET PO SCH (09:56)
[2018-03-04] MEDS: BACLOFEN 20 MG TABLET PO SCH ×3 (09:56→20:18)
[2018-03-04] MEDS: FOLIC ACID 1 MG TABLET PO SCH (09:56)
[2018-03-04] MEDS: GABAPENTIN 300 MG CAPSULE PO SCH ×3 (09:56→20:18)
[2018-03-04] MEDS: MUPIROCIN 2% OINT 22 GM TUBE NS SCH ×2 (09:57→20:17)
[2018-03-04] MEDS ORDERED: LORAZEPAM 1 MG TABLET PO PRN (10:45)
--- NOTE | 2018-03-04 11:04 | NUR ---
CLINICAL PHARMACY:VANCOMYCIN DOSING Subjective: Continue Vancomycin dosing on 22 y/0 6' 260lbs for left upper extremity cellulitis + positive BCx for MRSA sensitive to vanco Objecteive: BUN 8(03/01) Scr 1.0(03/01) WBC 6.6(03/01) Temp 98.4 Vancomycin trough 03/03 at 0930:14.3 Assessment/plan; Since Vancomycin trough is within the therapeutic range, will continue same dose of Vancomycin 2 gram IV every 9 hrs for now. If renal function were to change or pt remains on prolonged course, will consider repeat trough. Will continue to monitor daily.
[2018-03-04 12:00] VITALS: BP 130/82
--- NOTE | 2018-03-04 13:00 | NUR ---
Mom called, asked to tell Anselmo that she loves him.
[2018-03-04 16:00] VITALS: BP 129/87
--- NOTE | 2018-03-04 19:00 | NUR ---
END OF SHIFT Endorse client to incoming nurse, client in in room, a/o x 4, he continues to present with depressed mood, flat affect, clammy skin, and difficulty concentrating. Adequate PO fluid intake 1400mL, void x 3. Client continues on 1:1 for unsteady gait. Peripheral line on R arm with mid-line, dressing intact. Client consumes 50% of meals. Client is non-compliant of group therapy. Last CIWA 10 @ 1600. Seizure precautions in place. Contact isolation d/t + MRSA (blood). Call light within reach.
--- NOTE | 2018-03-04 19:15 | NUR ---
Start of Shift Note: Patient is a 22 y.o male admitted on 02/23/18 for medically supervised withdrawal from Opiate, ETOH & Benzo's. Patient is alert & oriented x4. He has a flat affect, anxious and depressed mood. He has a flushed face, disheveled, odorous and unkempt. Room is cluttered with empty bottles and food all over room. He presented with sweating, chills, fatigue, nausea with no episode of vomiting, reports 7/10 body aches, & fine tremors. Last COWS 10 CIWA 11. Pt completed his subutex and Ativan taper. PRN's available to manage symptoms of withdrawal. Pt is on contact isolation for positive MRSA of the blood. He has a midline on his right upper arm and is receiving IV ATB Vancomycin. Encourage pt to increase fluid intake as tolerated. Encourage pt to participate in group activities for relapse prevention. Educated patient of current plan of care for the night and medication regimen. Safety precaution in place. Bed locked in lowest position. Both side rails up. Call light within pt's reach. Will continue to monitor patient.
[2018-03-04 20:00] VITALS: BP 133/63
--- NOTE | 2018-03-04 20:08 | NUR ---
PRN Zofran Patient complained of nausea with no episode of vomiting. PRN Zofran SL administered as ordered. Will monitor for effectiveness of medication.
[2018-03-04] MEDS: LORAZEPAM 1 MG TABLET PO PRN (20:18)
--- NOTE | 2018-03-04 20:18 | NUR ---
PRN Ativan Patient noted with restlessness, anxiety & agitation. CIWA 11 noted at this time. PRN Ativan 1mg administered as ordered. Will monitor for effectiveness of medication.
[2018-03-04] MEDS ORDERED: BUPRENORPHINE HCL 2 MG TAB.SUBL SL SCH (21:00)
--- NOTE | 2018-03-04 21:08 | NUR ---
PRN Reassessment PRN medication effective. Patient verbalized improved nausea at this time. Encourage pt to increase fluid intake as tolerated. Safety measures in place. Will continue to monitor.
--- NOTE | 2018-03-04 21:18 | NUR ---
PRN Reassessment Patient verbalized decreased in anxiety & restlessness after medication administration. Patient appears more calm & comfortable noted ambulating in hallway. Will continue to monitor patient.
--- NOTE | 2018-03-04 22:21 | NUR ---
PRN Seroquel Patient complains of inability to fall asleep. PRN Seroquel administered as ordered. Will monitor for effectiveness of medication.
--- NOTE | 2018-03-04 23:21 | NUR ---
PRN Reassessment Patient in bed & still awake at this time. Patient appears drowsy in bed and appears comfortable. Safety measures in place. Will continue to monitor patient.
[2018-03-05] VITALS: BP 130/81
[2018-03-05 04:00] VITALS: BP 123/75
[2018-03-05] MEDS: VANCOMYCIN IV 2,000 MG in IV NORMAL SALINE 500 ML IV SCH ×2 (06:05→15:47)
--- NOTE | 2018-03-05 07:19 | NUR ---
End of Shift Note: Continue to closely monitor patient. Patient remains alert & oriented x4. . He continues to present anxious & depressed mood, sweating, chills, fatigue, nausea, generalized body aches, & fine tremors. Pt completed his taper with no problems. PRN's available to manage symptoms of withdrawal. Last COWS 9 CIWA 11. Pt received PRN Zofran for nausea, Seroquel for sleep and PRN Ativan for CIWA 11. Continue to closely monitor vitals and noted WNL. Pt continue to received IV ATB Vanco with no adverse reactions. Pt remained afebrile during my shift. Non pharmacological intervention utilized. Continue to encourage pt to participate in group therapy and to increase fluid intake as tolerated. Pt slept for a total of 7 hours. Fluid intake: 1710 ml, Voided 3x with 3x bowel movement. All needs attended & met. Safety measures in place. Will endorse pt to day shift nurse.
--- NOTE | 2018-03-05 07:25 | NUR ---
START OF SHIFT Rcvd endorse from ongoing nurse, client is in room, a/o x 4, he present with depressed mood, flat affect, clammy skin, and difficulty concentrating. Client reports generalized body aches and requests Ativan 2mg. Educated client on Ativan medication, additional education required. Mid-line on R arm, Vancomycin running at prescribed rate. PRN Zofran 4mg SL for nausea, Seroquel 100mg PO for inability to sleep, client slept 7 hrs. Last CIWA 9 @ 1600. Seizure precautions in place. Contact isolation d/t + MRSA (blood). Call light within reach.
[2018-03-05 08:16] VITALS: BP 105/66
[2018-03-05] MEDS ORDERED: LORAZEPAM 1 MG TABLET PO SCH (09:00)
[2018-03-05] MEDS: GABAPENTIN 300 MG CAPSULE PO SCH ×3 (09:24→20:27)
[2018-03-05] MEDS: CLONIDINE HCL 0.1 MG TABLET PO SCH ×2 (09:24→20:28)
[2018-03-05] MEDS: MULTIVITAMINS,THERAPEUTIC TABLET PO SCH (09:24)
[2018-03-05] MEDS: THIAMINE HCL 100 MG TABLET PO SCH (09:24)
[2018-03-05] MEDS: FOLIC ACID 1 MG TABLET PO SCH (09:24)
[2018-03-05] MEDS: DICYCLOMINE HCL 20 MG TABLET PO SCH ×3 (09:24→20:28)
[2018-03-05] MEDS: BACLOFEN 20 MG TABLET PO SCH ×3 (09:24→20:28)
[2018-03-05] MEDS: MUPIROCIN 2% OINT 22 GM TUBE NS SCH (09:29)
[2018-03-05 12:42] VITALS: BP 130/77
--- NOTE | 2018-03-05 12:58 | NUR ---
CLINICAL PHARMACY:VANCOMYCIN DOSING Subjective: Continue Vancomycin dosing on 22 y/0 6' 260lbs for left upper extremity cellulitis + positive BCx for MRSA sensitive to vanco Objecteive: BUN 8(03/01) Scr 1.0(03/01) WBC 6.6(03/01) Temp 98.4 Vancomycin trough 03/03 at 0930:14.3 Assessment/plan; Will continue Vancomycin 2 gram IV every 9 hrs for now. BUN/Scr is on order for tomorrow am. Will review the renal function and adjust the dose if needed. Will follow daily.
--- NOTE | 2018-03-05 13:50 | NUR ---
Client stated, "If you don't give me Ativan right now, I am going to leave." VS T98, P 51, RR 18, BP 105/53, spO2 @ 97%, pain 5/10. Encourage client to verbalize feelings. Call light within reach.
[2018-03-05] MEDS: ACETAMINOPHEN 325 MG TABLET PO PRN (14:03)
[2018-03-05] MEDS: CLONIDINE HCL 0.1 MG TABLET PO PRN (14:03)
[2018-03-05] MEDS: IBUPROFEN 600 MG TABLET PO PRN (14:03)
[2018-03-05] MEDS: HYDROXYZINE PAMOATE 25 MG CAPSULE PO PRN (14:03)
--- NOTE | 2018-03-05 14:03 | NUR ---
PRN Clonidine 0.1mg PO, Vistaril 25mg PO, Tylenol 650mg PO, Motrin 600mg PO administered for agitation, anxiety, generalized body aches 5/10 respectively. call light within reach.
--- NOTE | 2018-03-05 15:03 | NUR ---
Reassess PRN Clonidine 0.1mg, Vistaril 25mg, Tylenol 650mg, Motrin 600mg client reports no relief from agitation, anxiety, generalized body aches 5/10. Call light within reach.
[2018-03-05] MEDS: QUETIAPINE FUMARATE 25 MG TABLET PO PRN (15:48)
--- NOTE | 2018-03-05 15:48 | NUR ---
PRN Seroquel 25mg PO administered agitation. Call light within reach.
[2018-03-05 16:00] VITALS: BP 105/53
--- NOTE | 2018-03-05 16:48 | NUR ---
Reassess PRN Seroquel 25mg, client stated, "I feel less agitated, but can I have some Ativan, anyway." Additional education on Ativan required. Call light within reach.
--- NOTE | 2018-03-05 19:25 | NUR ---
END OF SHIFT Endorse client to incoming nurse, client is in room, a/o x 4, he continues to present with depressed mood, flat affect, clammy skin, and difficulty concentrating. Adequate PO fluid intake 1500mL, void x 2. Mid-line on R arm, vancomycin running at prescribed rate. Client consumes 50-75% of meals. PRN administered and noted per protocol. Client is non-compliant of group therapy. Last CIWA 4/ COWS 5 @ 1600. Seizure precautions in place. Contact isolation d/t + MRSA (blood). Call light within reach.
--- NOTE | 2018-03-05 19:57 | NUR ---
START OF SHIFT NOTE Rcvd report from outgoing nurse. Pt. is a 22 y/o male A/O to person, place, time, and purpose. Pt. was admitted for medically supervised withdrawal from Opiates and Benzodiazepines. Pt. presents w/ anxiety, restlessness, agitation, depressed mood, and flat affect. Pt. is c/o body and joint aches. Pt. did not attend group therapy sessions during the day. PRN Clonidine and Vistaril for increased anxiety, noted effective. PRN Tylenol, Motrin, and Robaxin given for body and joint aches and headache, noted effective. PRN Seroquel given for anxiety and agitation, noted effective. Pt. denies S/I and H/I. Last COWS 5 and CIWA 4. Call light within reach. Pt. will continue to be monitored and needs met.
[2018-03-05 20:00] VITALS: BP 125/70
[2018-03-05] MEDS ORDERED: BUPRENORPHINE HCL 2 MG TAB.SUBL SL SCH (21:00)
[2018-03-06] VITALS: BP 121/68
[2018-03-06] MEDS: QUETIAPINE FUMARATE 100 MG TABLET PO PRN (01:23)
--- NOTE | 2018-03-06 01:23 | NUR ---
PRN ADMINISTRATION Pt. given Seroquel 100mg and Ativan 1mg for insomnia and anxiety. V/S stable. Will reassess pt. in 1 hr.
[2018-03-06] MEDS: LORAZEPAM 1 MG TABLET PO PRN (01:24)
[2018-03-06] MEDS: VANCOMYCIN IV 2,000 MG in IV NORMAL SALINE 500 ML IV SCH ×3 (02:00→18:58)
--- NOTE | 2018-03-06 02:23 | NUR ---
PRN REASSESSMENT Pt. is in bed w/ his eyes closed. Pt.'s breathing is unlabored and even.
--- NOTE | 2018-03-06 04:15 | NUR ---
COWS/CIWA DEFERRED / V/S REFUSED Pt. is in bed w/ his eyes closed. Pt.'s breathing is unlabored and even.
[2018-03-06 07:03] LABS: POTASSIUM 3.9 mmol/L (3.5-5.1)
--- NOTE | 2018-03-06 07:15 | NUR ---
END OF SHIFT NOTE Endorsed pt. to oncoming nurse. Pt. is a 22 y/o male A/O to person, place, time, and purpose. Pt. was admitted for medically supervised withdrawal from Opiates and Benzodiazepines. Pt. presents w/ anxiety, restlessness, agitation, depressed mood, and flat affect. Pt. is c/o body and joint aches. PRN Seroquel 100mg and Ativan 1 mg @ 0123 for increased anxiety and insomnia, noted effective. Pt. denies S/I and H/I. Pt.s fluid intake was 1387ml. Pt. voided 3 times and slept for 3hrs. Last COWS 6 and CIWA 5. Bed is in the lowest position and side rails up x 2. Call light within reach.
--- NOTE | 2018-03-06 07:30 | NUR ---
Start of Shift Note Pt. is a 22 y/o male admitted for the medically managed withdrawal from opiates, benzodiazepines, Methamphetamine salts and ETOH. Endorsed pt.s behavior during previous shift was anxious, restless, agitated with a depressed mood and flat affect. Pt. is currently still receiving IV antibiotics through a mid line in his right upper arm. Pt. has completed his ativan and Subutex tapers. Upon approach pt. is A/O X 4 with poor eye contact. Pt.s is malodorous and disheveled. Encouraged pt. to maintain a hygienic personal space. PRN Seroquel 100mg and Ativan 1 given during previous shift. Pt. slept for 3hrs. Last COWS 6 and CIWA 5. Bed is in the lowest position and side rails up x 2. Call light within reach. Will continue to monitor pt.s behavior for safety.
[2018-03-06] MEDS ORDERED: LORAZEPAM 1 MG TABLET PO SCH (09:00)
[2018-03-06] MEDS ORDERED: BUPRENORPHINE HCL 2 MG TAB.SUBL SL SCH (09:00)
[2018-03-06] MEDS: FOLIC ACID 1 MG TABLET PO SCH (09:59)
[2018-03-06] MEDS: BACLOFEN 20 MG TABLET PO SCH ×3 (09:59→20:53)
[2018-03-06] MEDS: CLONIDINE HCL 0.1 MG TABLET PO SCH ×2 (09:59→20:53)
[2018-03-06] MEDS: THIAMINE HCL 100 MG TABLET PO SCH (09:59)
[2018-03-06] MEDS: DICYCLOMINE HCL 20 MG TABLET PO SCH ×3 (09:59→20:53)
[2018-03-06] MEDS: GABAPENTIN 300 MG CAPSULE PO SCH ×3 (09:59→20:53)
[2018-03-06] MEDS: MULTIVITAMINS,THERAPEUTIC TABLET PO SCH (09:59)
[2018-03-06 10:14] VITALS: BP 120/74
--- NOTE | 2018-03-06 10:39 | NUR ---
CLINICAL PHARMACY:VANCOMYCIN DOSING Subjective: Continue Vancomycin dosing on 22 y/0 6' 260lbs for left upper extremity cellulitis + positive BCx for MRSA(MRSA bacteremia) sensitive to vanco. Objecteive: BUN 9 Scr 1.0 WBC 6.6(03/01) Temp 98.1 Vancomycin trough 03/03 at 0930:14.3 Assessment/plan; Since renal function is stable, will continue same dose of Vancomycin 2grams IV every 9hrs(next dose due tonight at 1900). Will repeat trough 5 days after previous one on 03/08/18 if dosing is continued. Will monitor daily.
[2018-03-06 12:52] VITALS: BP 115/72
[2018-03-06 16:00] VITALS: BP 126/73
--- NOTE | 2018-03-06 19:18 | NUR ---
End of Note Pt. is a 22 y/o male admitted for the medically managed withdrawal from opiates, benzodiazepines, Methamphetamine salts and ETOH. Pt. presents with blunted affect and poor eye contact. Pt. is currently still receiving IV antibiotics through a mid line in his right upper arm. Pt. has completed his ativan and Subutex tapers. Upon approach pt. is A/O X 4. Pt.s is malodorous and disheveled. Pt. compliant with medication administration. Pt. compliant with treatment plan. Encouraged pt. to maintain a hygienic personal space. Pt. verbalized the desire to attend groups, Dr. Carr was called and permission was given to pt. as long as he performed hand hygiene before attending. No PRNs given shift. Last COWS 6 and CIWA 5 @ 1600. Bed is in the lowest position and side rails up x 2. Call light within reach. Will endorse pt.s behavior for safety.
--- NOTE | 2018-03-06 19:49 | NUR ---
START OF SHIFT NOTE Rcvd report from outgoing nurse. Pt. is in his room. Pt. is A/O to person, place, time, and purpose. Pt. presents w/ anxiety, restlessness, flat affect, depressed mood, and body aches. Pt. rcvd no PRN medications during day shift. Pt. denies S/I and H/I. Pt. attended group therapy sessions. Last COWS 6 and CIWA 5. Call light within reach. Pt. will continue to be monitored and needs met.
[2018-03-06 20:00] VITALS: BP 139/88
[2018-03-07] VITALS: BP 139/85
[2018-03-07] MEDS: QUETIAPINE FUMARATE 100 MG TABLET PO PRN ×2 (01:25→23:31)
[2018-03-07] MEDS: HYDROXYZINE PAMOATE 25 MG CAPSULE PO PRN ×2 (01:25→23:30)
[2018-03-07] MEDS: METHOCARBAMOL 750 MG TABLET PO PRN ×2 (01:31→23:30)
--- NOTE | 2018-03-07 01:31 | NUR ---
PRN ADMINISTRATION PRN Seroquel 100mg, Vistaril 25mg, and Robaxin 750mg given for anxiety, depression, and body aches. COWS 9 and CIWA 6. BP 139/85. Will reassess in 1 hr.
--- NOTE | 2018-03-07 02:31 | NUR ---
PRN REASSESSMENT Pt. is in bed w/ his eyes closed. Pt.'s breathing is unlabored and even.
--- NOTE | 2018-03-07 04:01 | NUR ---
COWS/CIWA DEFERRED AND V/S REFUSED Pt. is in bed w/ his eyes closed. Pt.'s breathing is unlabored and even.
[2018-03-07] MEDS: VANCOMYCIN IV 2,000 MG in IV NORMAL SALINE 500 ML IV SCH ×3 (04:58→23:29)
[2018-03-07 07:15] LABS: BILIRUBIN,DIRECT 0.1 mg/dL (0.0-0.2); BILIRUBIN,TOTAL 0.3 mg/dL (0.2-1.0); PHOSPHOROUS 5.3 mg/dL (2.5-4.9); POTASSIUM 4.1 mmol/L (3.5-5.1); TOTAL PROTEIN, SERUM 8.1 g/dL (6.4-8.2)
--- NOTE | 2018-03-07 07:17 | NUR ---
END OF SHIFT NOTE Endorsed pt. to oncoming nurse. Pt. is in his room. Pt. is a 22 y/o male A/O to person, place, time, and purpose. Pt. continues to present w/ anxiety, restlessness, flat affect, depressed mood, and body aches. PRN Vistaril 25mg , Seroquel 100mg, and Robaxin 750 mg @ 0131 for depression, anxiety ( COWS 9 and CIWA 6), and body aches, noted effective. Pt. denies S/I and H/I. Pt. attended group therapy sessions. Pt.s fluid intake was 1073 ml. Pt. voided 2 times and slept for 4 hrs. Last COWS 9 and CIWA 6 @ 0000. Call light within reach.
[2018-03-07 07:23] LABS: EOSINOPHILS # (AUTO) 0.2 K/uL (0.0-0.7); LYMPHOCYTES # (AUTO) 2.7 K/uL (20.0-40.0)
--- NOTE | 2018-03-07 07:30 | NUR ---
Start of Shift [employer]er received report on 22 year old male admitted to [facility] on 02/23/18 for medical management of Benzodiazepine, ETOH, Opiates, methamphetamine and cocaine withdrawals. Pt reportsNKA, regular diet and full code. Reports a PMH of Hepatitis and asthma. PPH of anxiety, depression and ADHD. Pt has a history of withdrawal related seizures. Pt has completed a Subutex and ativan and has been tolerating well. Last COWS 9 and CIWA 6, per NOC report. Seed Buyer encounters pt in pts room, resting with eyes closed . Rise and fall of chest noted. Even and unlabored respirations. Bed in low position with wheels locked and side rails up x2. Will continue to monitor, support and encourage according to plan of care.
[2018-03-07 07:34] LABS: BASOPHILS % (AUTO) 0.2 % (0.0-2.0); EOSINOPHILS % (AUTO) 2.4 % (0.0-7.0); HEMATOCRIT 41.8 % (36.7-47.1); HEMOGLOBIN 14.8 g/dL (12.5-16.3); LYMPHOCYTES % (AUTO) 28.8 % (20.5-51.5); MEAN CORPUSCULAR HEMOGLOBIN 30.7 uug (23.8-33.4); MEAN CORPUSCULAR HGB CONC 35 g/dL (32.5-36.3); MONOCYTES % (AUTO) 10.5 % (0.0-11.0); NEUTROPHILS # (AUTO) 5.4 K/uL (1.8-8.9); NEUTROPHILS % (AUTO) 58.1 % (38.5-71.5); PLATELET COUNT (AUTO) 291 K/uL (152-348)
[2018-03-07 07:35] LABS: WHITE BLOOD COUNT (AUTO) 9.2 K/uL (3.6-10.2)
[2018-03-07 08:54] VITALS: BP 106/65
[2018-03-07] MEDS ORDERED: LORAZEPAM 1 MG TABLET PO ONE (09:00)
[2018-03-07] MEDS ORDERED: BUPRENORPHINE HCL 2 MG TAB.SUBL SL SCH (09:00)
[2018-03-07] MEDS: DICYCLOMINE HCL 20 MG TABLET PO SCH ×3 (09:30→21:01)
[2018-03-07] MEDS: CLONIDINE HCL 0.1 MG TABLET PO SCH ×2 (09:30→21:01)
[2018-03-07] MEDS: FOLIC ACID 1 MG TABLET PO SCH (09:30)
[2018-03-07] MEDS: THIAMINE HCL 100 MG TABLET PO SCH (09:31)
[2018-03-07] MEDS: BACLOFEN 20 MG TABLET PO SCH ×3 (09:31→21:00)
[2018-03-07] MEDS: MULTIVITAMINS,THERAPEUTIC TABLET PO SCH (09:31)
[2018-03-07] MEDS: GABAPENTIN 300 MG CAPSULE PO SCH ×3 (09:31→21:01)
--- NOTE | 2018-03-07 10:57 | NUR ---
CLINICAL PHARMACY:VANCOMYCIN DOSING Subjective: Continue Vancomycin dosing on 22 y/0 6' 260lbs for left upper extremity cellulitis + positive BCx for MRSA(MRSA bacteremia) sensitive to vanco. Objecteive: BUN 8 Scr 1.0 WBC 9.2 Temp 98.1 Vancomycin trough 03/03 at 0930:14.3 Assessment/plan; Since renal function is stable, will continue same dose of Vancomycin 2grams IV every 9hrs. Will repeat trough tomorrow (not ordered yet) to check as pt has been on prolonged course. Will monitor daily.
[2018-03-07 12:30] VITALS: BP 145/90
[2018-03-07 16:45] VITALS: BP 118/71
--- NOTE | 2018-03-07 19:30 | NUR ---
Start of Shift Pt is a 22 y/o male admitted 02/23/18 for medically managed withdrawal/detox from Xanax, ETOH, Opiates, Methamphetamine salts, and Cocaine. Pt is a full code, on a regular diet with NKA's. PMH includes Anxiety, Depression, Hepatitis C, Asthma, ADHD. Last reported COWS and CIWA were both 5 from day shift. Pt first encountered at nursing station requesting off unit pass. Pt assessed in room, able to answer questions and respond to commands appropriately, A&O x 4. C/o Intermittent pain, in midline IV and/or generalized made but not currently presend. Evening meds reviewed with pt, with request made for Vancomycin IV and sleeping meds prior to 11 made by pt. Will continue to monitor pt for duration of shift, promptly attending to all pt needs.
[2018-03-07 20:00] VITALS: BP 142/79
--- NOTE | 2018-03-07 23:30 | NUR ---
IV Vancomycin administered late due to pt being off unit, then showering before administration. Pt was aware of med administration and timing, noncomplied. Sleeping meds given, pt requesting to be awakened early in order to "take care of things"
--- NOTE | 2018-03-07 23:31 | NUR ---
PRN Meds Seroquel 100mg PO for anxiety/insomnia, Robaxin 750mg PO for body aches, and Vistaril 25mg PO for anxiety/insomnia given. Will continue to monitor pt, reassessing in 1 hour, and promptly attending to all pt needs.
--- NOTE | 2018-03-08 | NUR ---
VS's COWS & CIWA Deferred Midnight VS's, COWS & CIWA deferred r/t pt sleeping/refused. RR 14, even and nonlabored. Will continue to monitor pt, promptly attending to all pt needs.
--- NOTE | 2018-03-08 00:31 | NUR ---
PRN Reassessment Seroquel 100mg PO, Robaxin 750mg PO, and Vistaril 25mg PO given 1 hour prior. At present, pt sleeping intermittently, at waking asking if he can go smoke, despite being midway in IV Vancomycin infusion. Pt told no, reassured that at termination of infusion he may smoke. Meds effective.
[2018-03-08 02:20] VITALS: BP 113/67
[2018-03-08] MEDS: QUETIAPINE FUMARATE 25 MG TABLET PO PRN (02:23)
--- NOTE | 2018-03-08 02:23 | NUR ---
PRN Meds Vistaril 25mg PO and Clonidine 0.1mg PO given for anxiety/insomnia. Will continue to monitor pt, reassessing in 1 hour, and promptly attending to all pt needs.
[2018-03-08] MEDS: CLONIDINE HCL 0.1 MG TABLET PO PRN ×2 (02:25→15:40)
--- NOTE | 2018-03-08 03:23 | NUR ---
PRN Reassessment Vistaril 25mg PO and Clonidine 0.1mg PO given one hour prior for anxiety/insomnia. At present pt sleeping. Meds effective. Will continue to monitor and promptly attend to all pt needs.
--- NOTE | 2018-03-08 04:00 | NUR ---
VS's COWS & CIWA Deferred 0400 VS's, COWS & CIWA deferred r/t pt sleeping/refused. RR 14, even and nonlabored. Will continue to monitor pt, promptly attending to all pt needs.
[2018-03-08] MEDS: VANCOMYCIN IV 2,000 MG in IV NORMAL SALINE 500 ML IV SCH ×2 (06:22→17:34)
--- NOTE | 2018-03-08 06:41 | NUR ---
End of Shift Pt is a 22 y/o male admitted 02/23/18 for medically managed withdrawal/detox from Xanax, ETOH, Opiates, Methamphetamine salts, and Cocaine. Pt is a full code, on a regular diet with NKA's. Safety precautions remain in place with fall and seizure precautions. PMH includes Anxiety, Depression, Hepatitis C, Asthma, ADHD. Last COWS and CIWA were 8 and 8 at 0220. PRN meds for shift included Seroquel 100mg PO for anxiety/insomnia, Robaxin for generalized body aches, 2 x Vistaril 25mg PO for anxiety, and Clonidine 0.1mg PO for anxiety/insomnia. Pt noncompliant with IV antibiotic, off unit during administration time, then insisting on showering before abx. Eye contact remains avoidant/stares into space. Concentration poor/easily distracted, thought process loose. Pt slept for 3 hours, with 1855 intake, 3 voids and 0 BM's. Will continue to monitor pt for duration of shift, promptly attending to all pt needs.
--- NOTE | 2018-03-08 07:50 | NUR ---
START OF SHIFT PT IS A 22 Y/O M ADMITTED FOR MEDICALLY SUPERVISED ETOH, BENZO, OPIATE, METH AND COCAINE WITHDRAWAL. PT HAS COMPLETED ATIVAN AND SUBUTEX TAPERS. LAST COWS 8 AND CIWA 8 @0230; PT SLEPT 3 HRS PER WIRE COINER NURSE. PT IS CURRENTLY RECEIVING IV VANCO ABX VIA MIDLINE RUE. UPON ASSESSMENT, IV ABX STILL RUNNING, PT IS LAYING IN BED WITH EYES CLOSED; APPEARS DROWSY BUT ABLE TO ANSWER QUESTIONS. PT REPORTS HAVING ANXIETY AND MILD HEADACHE. EDUCATED PT WITH PLAN OF CARE AND MED REGIMEN. SIDE RAILS UPX2, BED IN LOWEST POSITION. CALL LIGHT WITHIN REACH. SAFETY MEASURES IN PLACE. WILL CONTINUE TO MONITOR.
[2018-03-08 08:00] VITALS: BP 106/67
[2018-03-08] MEDS: CLONIDINE HCL 0.1 MG TABLET PO SCH ×2 (09:50→20:50)
[2018-03-08] MEDS: FOLIC ACID 1 MG TABLET PO SCH (09:50)
[2018-03-08] MEDS: THIAMINE HCL 100 MG TABLET PO SCH (09:50)
[2018-03-08] MEDS: MULTIVITAMINS,THERAPEUTIC TABLET PO SCH (09:50)
[2018-03-08] MEDS: GABAPENTIN 300 MG CAPSULE PO SCH ×3 (09:51→20:49)
[2018-03-08] MEDS: HYDROXYZINE PAMOATE 25 MG CAPSULE PO PRN (09:51)
[2018-03-08] MEDS: DICYCLOMINE HCL 20 MG TABLET PO SCH ×3 (09:51→20:50)
[2018-03-08] MEDS: METHOCARBAMOL 750 MG TABLET PO PRN (09:51)
[2018-03-08] MEDS: BACLOFEN 20 MG TABLET PO SCH ×3 (09:51→20:49)
--- NOTE | 2018-03-08 09:51 | NUR ---
PRN ROBAXIN 750 MG AND VISTARIL 35 MG PO PRNS GIVEN FOR C/O INTENSE ANXIETY AND MUSCLE ACHES. PT IS IN BED COVERED IN SHEETS, FACIAL GRIMACING. SAFETY MEASURES IN PLACE. WILL MONITOR AND REASSESS.
--- NOTE | 2018-03-08 10:51 | NUR ---
REASSESSMENT PT IS LAYING IN BED WITH EYES CLOSED AND SLEEPING. SAFETY MEASURES IN PLACE. WILL CONTINUE TO MONITOR.
[2018-03-08 12:12] VITALS: BP 107/62
--- NOTE | 2018-03-08 12:20 | NUR ---
CLINICAL PHARMACY:VANCOMYCIN DOSING Subjective: Continue Vancomycin dosing on 22 y/0 6' 260lbs for left upper extremity cellulitis + positive BCx for MRSA(MRSA bacteremia) sensitive to vanco. Objecteive: BUN 8 (6/3) Scr 1.0 (6/3) WBC 9.2 (6/3) Temp 100.3 Vancomycin trough repeat pending today at 1530 Assessment/plan; Since renal function is stable, will continue same dose of Vancomycin 2grams IV every 9hrs. Repeat trough ordered for today at 1530 before 1600 dose d/t prolonged course. Will check level and adjust as needed. Will follow Addendum: 03/08/18 at 1656 by CAITLYN DELONG ADM REPEAT TROUGH TODAY AT 1558 (30MIN LATE) WAS 14.5. WILL CONTINUE SAME REGIMEN (RESCHEDULED D/T LATE TROUGH RESULT TO START AGAIN AT 1700).
[2018-03-08] MEDS: ACETAMINOPHEN 325 MG TABLET PO PRN (15:41)
--- NOTE | 2018-03-08 15:41 | NUR ---
PRN CLONIDINE 0.1 MG AND TYLENOL 650 MG PO PRNS GIVEN FOR C/O GENERALIZED PAIN, SWEATING, CHILLS, HOT/COLD FLASHES, AND ANXIETY. WILL MONITOR AND REASSESS.
--- NOTE | 2018-03-08 16:41 | NUR ---
REASSESSMENT PT REPORTS GENERALIZED PAIN IS THE SAME HOWEVER SWEATING AND HOT/COLD FLASHES HAS CEASED. SAFETY MEASURES IN PLACE. WILL CONTINUE TO MONITOR.
[2018-03-08 16:43] VITALS: BP 104/61
--- NOTE | 2018-03-08 18:33 | NUR ---
END OF SHIFT LAST COWS 8 AND CIWA 8 @1600. PT HAS BEEN GIVEN CLONIDINE, TYLENOL, ROBAXIN AND VISTARIL PRNS DURING SHIFT. PT HAS BEEN COMPLIANT WITH MED REGIMEN. PT CONTINUES ON VANCO VIA RUE MIDLINE. PT C/O HAVING HOT/COLD FLASHES, CHILLS AND DIAPHORESIS, ANXIETY, AGITATION, AND GENERALIZED BODY ACHES. PT ATE 0/0/100% OF MEALS. FLUID INTAKE: , VOIDED 2, BM 0. PT VERBALIZED HE WANTED TO APOLOGIZE ABOUT HIS MISBEHAVIOR DURING HIS STAY STATING THAT HE WAS NOT HIMSELF AT THE TIME. SAFETY MEASURES IN PLACE. WILL GIVE ENDORSEMENT TO UX DESIGN MANAGER NURSE.
--- NOTE | 2018-03-08 19:45 | NUR ---
START OF SHIFT NOTE Rcvd report from outgoing nurse, pt. is in his room. Pt. is 22 y/o male A/O to person, palce, time, and purpose. Pt. presents w/ anxiety, agitation, depressed and withdrawn mood, blunted affect, body aches, and restlessness. PRN Robaxin 750mg and Vistaril 25mg @ 0951 for body aches and anxiety, noted effective. PRN Clonidine 0.1mg and Tylenol 650mg @ 1540 for headache and s/s of withdrawal, noted effective. Last COWS 8 and CIWA 8 @ 1600. Call light within reach. Pt. will continue to be monitored and needs met.
[2018-03-08 20:02] VITALS: BP 106/48
[2018-03-09] MEDS: IBUPROFEN 600 MG TABLET PO PRN (00:30)
--- NOTE | 2018-03-09 00:30 | NUR ---
PRN ADMINISTRATION PRN Motrin 600mg given for headache. Pt. states 5/10 pain unrelieved by lying in bed. Will reassess in 1 hr.
--- NOTE | 2018-03-09 01:30 | NUR ---
PRN REASSESSMENT Pt. is lying in bed. Pt. states relief of pain, 11/14. V/S P:68, RR:18, O2Sat:98%, BP:110/68.
[2018-03-09] MEDS: VANCOMYCIN IV 2,000 MG in IV NORMAL SALINE 500 ML IV SCH ×3 (02:45→21:14)
[2018-03-09] MEDS: QUETIAPINE FUMARATE 100 MG TABLET PO PRN (02:45)
[2018-03-09] MEDS: METHOCARBAMOL 750 MG TABLET PO PRN (02:45)
[2018-03-09] MEDS: HYDROXYZINE PAMOATE 25 MG CAPSULE PO PRN (02:45)
--- NOTE | 2018-03-09 02:45 | NUR ---
PRN ADMINISTRATION Pt. rcvd Robaxin 750mg, Seroquel 100mg, and Vistaril 25mg @ 0245, pt. c/o body aches, anxiety, and restlessness leading to insomnia. Pt. will be reassessed in 1 hr.
--- NOTE | 2018-03-09 03:45 | NUR ---
PRN REASSESSMENT Pt. is in bed w/ his eyes closed. Pt.'s breathing is unlabored and even. Pt.'s pulse is strong and regular.
--- NOTE | 2018-03-09 04:02 | NUR ---
COWS AND CIWA DEFERRED / V/S REFUSED Pt. is in bed w/ his eyes closed. Pt.'s breathing is unlabored and even.
[2018-03-09 06:56] LABS: CREATININE 0.9 mg/dL (0.6-1.3); MAGNESIUM 2.1 mg/dL (1.8-2.4); PHOSPHOROUS 4.8 mg/dL (2.5-4.9); POTASSIUM 3.7 mmol/L (3.5-5.1)
[2018-03-09 07:11] LABS: BASOPHILS % (AUTO) 0.5 % (0.0-2.0); EOSINOPHILS # (AUTO) 0.3 K/uL (0.0-0.7); MEAN CORPUSCULAR HEMOGLOBIN 30.5 uug (23.8-33.4); MONOCYTES # (AUTO) 0.7 K/uL (2.0-10.0); NEUTROPHILS # (AUTO) 3.1 K/uL (1.8-8.9)
--- NOTE | 2018-03-09 07:13 | NUR ---
END OF SHIFT NOTE Endorsed pt. to oncoming nurse, pt. is in his room. Pt. is 22 y/o male A/O to person, palce, time, and purpose. Pt. continues to present w/ anxiety, agitation, depressed and withdrawn mood, blunted affect, body aches, restlessness, and insomnia. PRN Motrin 600mg given @ 0030 for head pain, noted effective. PRN Robaxin 750mg, Seroquel 100mg, and Vistaril 25mg @ 0245 for body aches, insomnia, and anxiety, noted effective. Pt.s fluid intake was 1451 ml. Pt. voided 2 times and slept for 2 hrs. Last COWS 8 and CIWA 8 @ 0230. Call light within reach.
[2018-03-09 07:27] LABS: EOSINOPHILS % (AUTO) 4.9 % (0.0-7.0); HEMATOCRIT 40.4 % (36.7-47.1); HEMOGLOBIN 14.1 g/dL (12.5-16.3); LYMPHOCYTES # (AUTO) 1.8 K/uL (20.0-40.0); LYMPHOCYTES % (AUTO) 30.8 % (20.5-51.5); MEAN CORPUSCULAR HGB CONC 35 g/dL (32.5-36.3); MEAN CORPUSCULAR VOLUME 87.2 fL (73.0-96.2); MONOCYTES % (AUTO) 11.5 % (0.0-11.0); NEUTROPHILS % (AUTO) 52.3 % (38.5-71.5); PLATELET COUNT (AUTO) 252 K/uL (152-348); RED BLOOD CELL COUNT(AUTO) 4.64 MIL/uL (4.06-5.63)
[2018-03-09 07:28] LABS: WHITE BLOOD COUNT (AUTO) 5.9 K/uL (3.6-10.2)
--- NOTE | 2018-03-09 07:30 | NUR ---
Start of Shift Inflatable Buildings Laminator received report on 22 year old male admitted to [facility] on 02/23/18 for medical management of Benzodiazepine, ETOH, Opiates, methamphetamine and cocaine withdrawals. Pt reports NKA, regular diet and full code. Reports a PMH of Hepatitis and asthma. PPH of anxiety, depression and ADHD. Pt has a history of withdrawal related seizures. Pt has completed a Subutex and ativan and has been tolerating well. Last COWS 8 and CIWA 8, per NOC report. Inflatable Buildings Laminator encounters pt in pts room, resting with eyes closed . Rise and fall of chest noted. Even and unlabored respirations. Bed in low position with wheels locked and side rails up x2. Will continue to monitor, support and encourage according to plan of care.
[2018-03-09 08:33] VITALS: BP 104/56
[2018-03-09] MEDS: DICYCLOMINE HCL 20 MG TABLET PO SCH ×3 (09:28→21:13)
[2018-03-09] MEDS: BACLOFEN 20 MG TABLET PO SCH ×3 (09:29→21:14)
[2018-03-09] MEDS: CLONIDINE HCL 0.1 MG TABLET PO SCH ×2 (09:29→21:14)
[2018-03-09] MEDS: THIAMINE HCL 100 MG TABLET PO SCH (09:29)
[2018-03-09] MEDS: MULTIVITAMINS,THERAPEUTIC TABLET PO SCH (09:29)
[2018-03-09] MEDS: GABAPENTIN 300 MG CAPSULE PO SCH ×3 (09:29→21:13)
[2018-03-09] MEDS: FOLIC ACID 1 MG TABLET PO SCH (09:29)
[2018-03-09 12:30] VITALS: BP 109/58
--- NOTE | 2018-03-09 14:45 | NUR ---
CLINICAL PHARMACY:VANCOMYCIN DOSING Subjective: Continue Vancomycin dosing on 22 y/0 6' 260lbs for left upper extremity cellulitis + positive BCx for MRSA(MRSA bacteremia) sensitive to vanco. Objecteive: BUN 12 Scr 0.9 WBC 5.9 Temp 98.2 Vancomycin trough 14.5 on 03/08/18 at 1558 Assessment/plan; Since renal function is stable, will continue same dose of Vancomycin 2grams IV every 9hrs. Patient will be discharged tonight. If continued to stay and on Vancomycin, will continue to monitor renal function and adjust as needed. Will follow
[2018-03-09 16:00] VITALS: BP 138/89
--- NOTE | 2018-03-09 16:11 | NUR ---
Endorsement of Care Education And Training Manager endorsed care of 22 year old male admitted to [facility] on 02/23/18 for medical management of Benzodiazepine, ETOH, Opiates, methamphetamine and cocaine withdrawals. Pt reports NKA, regular diet and full code. Reports a PMH of Hepatitis and asthma. PPH of anxiety, depression and ADHD. Pt has a history of withdrawal related seizures. Pt has completed a Subutex and Ativan and has been tolerating well. Last COWS 5 and CIWA 5 recorded at 1230. Pt has a mid-line IV running with anti-biotics ordered per MD order. Pt is A/O x4 and able to make needs known, Calm and cooperative. Poor eye contact and short attention span. Pt has a blunted affect and depressed mood. Pt is isolative to room. Bed in low position with wheels locked and side rails up x2.
--- NOTE | 2018-03-09 16:15 | NUR ---
TRANSFER OF CARE RECEIVED REPORT FROM NURSE, LAST COWS 5 AND CIWA 5 @1200. 0 PRNS GIVEN. PT HAS BEEN COMPLIANT WITH MED REGIMEN AND PLAN OF CARE. SIDE RAILS UPX2, BED IN LOW POSITION, CALL LIGHT WITHIN REACH. SAFETY MEASURES IN PLACE. WILL CONTINUE TO MONITOR.
--- NOTE | 2018-03-09 18:50 | NUR ---
END OF SHIFT LAST COWS 8 AND CIWA 8 @1600. PT HAS BEEN GIVEN 0 PRNS DURING SHIFT. PT HAS BEEN COMPLIANT WITH MED REGIMEN. PT CONTINUES ON VANCO VIA RUE MIDLINE. PT C/O HAVING CHILLS, DIAPHORESIS, ANXIETY, AGITATION, AND GENERALIZED BODY ACHES. FLUID INTAKE: 1855, VOIDED 2, BM 0. PT HAS BEEN COMPLIANT WITH MED REGIMEN AND TX PLAN. VANCO TO CONTINUE TONIGHT @1999. SAFETY MEASURES IN PLACE. WILL GIVE ENDORSEMENT TO SUPERVISOR DRAWING NURSE.
[2018-03-09 20:00] VITALS: BP 132/85
--- NOTE | 2018-03-09 20:00 | NUR ---
Start of Shift Patient awake in room, AAOx4 and appears anxious. No SOB noted. With midline on the right upper arm, patent and intact. With anti-microbial patch in place. Saline flush done, no resistance noted. Patient appears disheveled, unkempt and odorous. Encouraged patient to take a shower and educated the importance of keeping clean. Patient continues to be on Vanco IV treatment. Fall, universal, seizure and safety prec in place. Call light within reach. Latest COWS=8, CIWA=7. Will continue to monitor.
[2018-03-10] VITALS: BP 128/76
[2018-03-10] MEDS: METHOCARBAMOL 750 MG TABLET PO PRN (00:18)
[2018-03-10] MEDS: QUETIAPINE FUMARATE 100 MG TABLET PO PRN (00:18)
[2018-03-10] MEDS: HYDROXYZINE PAMOATE 25 MG CAPSULE PO PRN (00:18)
--- NOTE | 2018-03-10 00:19 | NUR ---
RN note PRN Seroquel, Robaxin and Vistaril Pt c/o inability to sleep, generalized muscle spasm=6/10 and increasing anxiety. Administered Seroquel 100 mg PO PRN, Robaxin 750 mg PO PRN and Vistaril 25 mg PO PRN. Will reassess.
--- NOTE | 2018-03-10 01:20 | NUR ---
RN note reassess Pt asleep on bed, with no SOB nor facial grimacing noted.
[2018-03-10 04:00] VITALS: BP 114/71
--- NOTE | 2018-03-10 07:18 | NUR ---
End of Shift Patient asleep on bed, arousable to name. AAOx4 and with increasing anxiety noted. Pt continues to be on IV abx treatment. With Midline patent and intact. Saline flush done, no resistance noted. Pt is clean and kempt but room appears messy and with candy wrappers scattered on the floor. Pt noted with blunt affect and depressed mood. Call light within reach. Latest COWS=6, CIWA=5, slept for 5 hours. Endorsed to AM shift nurse for continuity of care.
--- NOTE | 2018-03-10 07:30 | NUR ---
Start of Shift Pt. is a 22 y/o male admitted for the medically supervised withdrawal from Benzodiazepines, ETOH, and Methamphetamine salts. Pt. was placed on an Ativan and Subutex taper which he completed. Pt. was administered Vancomycin through a mid-line on right upper arm. No Dose due at this time. Received pt. in room laying in bed with eyes closed. Pt. is arousable to touch and name. Pt. irritable and states "I'm asleep just let me sleep." Endorsed pt.'s behavior during previous shift was depressed and irritable upon approach. Pt.'s room is cluttered with food wrappers and pt. is unkempt and malodorous. Last COWS 6 and CIWA 5. Will continue to monitor pt.'s behavior for safety.
[2018-03-10 08:00] VITALS: BP 148/89
[2018-03-10] MEDS: FOLIC ACID 1 MG TABLET PO SCH (09:37)
[2018-03-10] MEDS: THIAMINE HCL 100 MG TABLET PO SCH (09:37)
[2018-03-10] MEDS: GABAPENTIN 300 MG CAPSULE PO SCH ×2 (09:37→15:35)
[2018-03-10] MEDS: CLONIDINE HCL 0.1 MG TABLET PO SCH (09:37)
[2018-03-10] MEDS: MULTIVITAMINS,THERAPEUTIC TABLET PO SCH (09:37)
[2018-03-10] MEDS: BACLOFEN 20 MG TABLET PO SCH ×2 (09:37→15:35)
[2018-03-10] MEDS: DICYCLOMINE HCL 20 MG TABLET PO SCH ×2 (09:37→15:35)
--- NOTE | 2018-03-10 10:00 | NUR ---
Per Infectious Disease INFORMATION SECURITY ASSOCIATE Pt.'s Vancomycin D/C'd. Pt. Afebrile, with no s/s of infection. Will continue to monitor pt. behavior for safety.
[2018-03-10 12:49] VITALS: BP 103/54
[2018-03-10 17:00] VITALS: BP 131/81
--- NOTE | 2018-03-10 19:30 | NUR ---
End of Shift Pt. is a 22 y/o male admitted for the medically supervised withdrawal from Benzodiazepines, ETOH, and Methamphetamine salts. Pt. was placed on an Ativan and Subutex taper which he completed. Pt. was administered Vancomycin through a mid-line on right upper arm. Per ID CENTRAL SUPPLY TECHNICIAN SUPERVISOR pt. has received the full regiment of his IV Vancomycin. Upon approach pt. irritable, guarded with a blunted affect. Encouraged pt. to verbalize concerns and emotions. Last COWS 6 and CIWA 5. Will endorse pt.'s behavior and care to oncoming shift.
--- NOTE | 2018-03-10 19:31 | NUR ---
Start of shift note Received report from day shift nurse. Pt is a 22 yo male, A+Ox4, presenting to [facility] for Benzo/ETOH/Opiate/Meth/Cocaine withdrawal. Pt noted to be anxious, restless, and agitated. Pt has HX of Anxiety, depression, Hep C, Asthma, and ADHD which will be monitored during shift. Pt has completed 5 day Ativan and 4 day Subutex tapers, tolerated well. Pt continues on C/I for MRSA of blood. Respirations even and unlabored. Will continue to monitor.
[2018-03-10 20:06] VITALS: BP 127/86
[2018-03-11 00:12] VITALS: BP 126/84
[2018-03-11] MEDS: DICYCLOMINE HCL 20 MG TABLET PO SCH ×3 (02:28→15:30)
[2018-03-11] MEDS: CLONIDINE HCL 0.1 MG TABLET PO SCH ×2 (02:28→09:05)
[2018-03-11] MEDS: BACLOFEN 20 MG TABLET PO SCH ×3 (02:28→15:30)
[2018-03-11] MEDS: GABAPENTIN 300 MG CAPSULE PO SCH ×3 (02:29→15:31)
[2018-03-11] MEDS: QUETIAPINE FUMARATE 100 MG TABLET PO PRN (02:40)
--- NOTE | 2018-03-11 02:40 | NUR ---
PRN Seroquel Pt c/o inability to sleep and requested for PRN Seroquel. Medication given and tolerated well. Will reassess within 1 HR. Will continue to monitor.
--- NOTE | 2018-03-11 03:35 | NUR ---
PRN Seroquel Reassessment Medication effective. Pt is resting well in bed. No s/s of ASE noted at this time. Respirations even and unlabored. Will continue to monitor.
[2018-03-11 04:25] VITALS: BP 132/76
--- NOTE | 2018-03-11 06:56 | NUR ---
End of shift note Pt was continuously noted with anxiety, agitation, restlessness, sweats, chills, and irritability. Pt remained in room for majority of shift except to get food from kitchen, to go smoke on smoking patio, and to interact with other patients in recreational room. Pt has completed IV ATB therapy, Midline IV still intact and patent @ Right Brachial site until further evaluation by MD. Pt was given PRN Seroquel @0240. Pt was compliant with all aspects if care. Pt slept for a total of 3 HRS. Last COWS: 11 and Last CIWA: 13 @0400. Respirations even and unlabored. Will endorse to day shift nurse.
--- NOTE | 2018-03-11 07:30 | NUR ---
START OF SHIFT Pt 22 y/o male admitted for benzo, etoh, opiate, meth, and cocaine withdrawal. Pt received in room on bed with eyes closed resting, but easily arousable to name. Pt alert and oriented to name, place, and time. Perrla. Skin warm and moist to touch. Respirations even and unlabored. Bilateral hand tremors noted. Pt appears disheveled and unkempt. Clothes, food wrappings, and empty drink bottles scattered throughout the room. Midline on right medial brachial intact and in place with no redness noted. Pt not allowing me to flush midline for patency. Will attempt to flush midline again this morning. Encouraged to maintain hygiene. Pt irritable this morning. It was reported that pt slept for 3 hours last night. Last reported cows=11 and ciwa =15 @ 2100. Pt was on a modified ativan and modified subutex taper and completed it. It was reported that pt had a difficultly falling asleep last night and prn trazodone prn per MD order was given last night. Bed on lowest position with side rails x2 up for safety. Call light within reach.
[2018-03-11 08:00] VITALS: BP 99/62
[2018-03-11] MEDS: THIAMINE HCL 100 MG TABLET PO SCH (09:05)
[2018-03-11] MEDS: FOLIC ACID 1 MG TABLET PO SCH (09:05)
[2018-03-11] MEDS: MULTIVITAMINS,THERAPEUTIC TABLET PO SCH (09:05)
[2018-03-11 12:00] VITALS: BP 131/80
[2018-03-11 16:00] VITALS: BP 128/78
--- NOTE | 2018-03-11 16:20 | NUR ---
MID LINE Mid line dc'd and tolerated well.
--- NOTE | 2018-03-11 16:35 | NUR ---
DISCHARGE Pt 22 y/o male admitted for benzo , ewtoh, opiate, meth, and cocaine withdrawal. Pt alert and oriented to name, place, and time. Perrla. Skin warm and moist to touch. Respirations even and unlabored. No hand tremors noted. VS wnl. No belongings in cassette, cabinet, and no home medications noted. Discharge papers and prescriptions packed in bag. Pt denies any SI/ HI. Pt excited about discharge. Pt discharged to [facility] via private transport. No distress noted.
== END 2018-03-11 16:35 | disposition other institution (70) | DRG 895 ==
LOC: SRC 17:43
PROVIDERS: ADMIT Internal Medicine; ATTEND Internal Medicine
PROC: HZ2ZZZZ Detoxification Services for Substance Abuse Treatment (ICD-10-PCS; principal; 2018-02-23)
PROC: HZ31ZZZ Individual Counseling for Substance Abuse Treatment, Behavioral (ICD-10-PCS; 2018-02-24)
PROC: 05H533Z Insertion of Infusion Device into Right Subclavian Vein, Percutaneous Approach (ICD-10-PCS; 2018-03-03)
PROC: HZ41ZZZ Group Counseling for Substance Abuse Treatment, Behavioral (ICD-10-PCS; 2018-03-09)
DX: F13.239 Sedative, hypnotic or anxiolytic dependence with withdrawal, unspecified (principal); A41.02 Sepsis due to Methicillin resistant Staphylococcus aureus; L03.114 Cellulitis of left upper limb; L03.113 Cellulitis of right upper limb; L02.414 Cutaneous abscess of left upper limb; L02.413 Cutaneous abscess of right upper limb; Z86.74 Personal history of sudden cardiac arrest; F15.23 Other stimulant dependence with withdrawal; E66.01 Morbid (severe) obesity due to excess calories; B19.20 Unspecified viral hepatitis C without hepatic coma; F11.23 Opioid dependence with withdrawal; F10.230 Alcohol dependence with withdrawal, uncomplicated; Y90.0 Blood alcohol level of less than 20 mg/100 ml; F17.210 Nicotine dependence, cigarettes, uncomplicated; J45.20 Mild intermittent asthma, uncomplicated; Z68.35 Body mass index [BMI] 35.0-35.9, adult; Z71.3 Dietary counseling and surveillance; F90.9 Attention-deficit hyperactivity disorder, unspecified type; F41.9 Anxiety disorder, unspecified; Z59.0 Homelessness; S51.032S Puncture wound without foreign body of left elbow, sequela; S51.031S Puncture wound without foreign body of right elbow, sequela; X78.8XXS Intentional self-harm by other sharp object, sequela; Z91.89 Other specified personal risk factors, not elsewhere classified; K59.00 Constipation, unspecified; I10 Essential (primary) hypertension; Z59.1 Inadequate housing; F32.9 Major depressive disorder, single episode, unspecified
CPT/HCPCS: 36415; 36569; 70030-TC; 80307; 80346; 80349; 80361; 83735; 84100; 84443; 85025; 86592; 86705; 86803; 87040; 87077; 87340; 87806; 93307; C9113; G0480; J1885; J2405; J3370; J3490; J7040; J7042; J7060; Q0162